=== PATIENT | male | born 1940 | race American Indian/Alaskan Native ===

== ENCOUNTER 2017-04-27 07:23 | Inpatient (IN) | payer MEDICARE, BC ==
[2017-04-27 07:35] VITALS: BMI 25.1
[2017-04-27 07:52] LABS: BASO # 0.1 K/uL (0.0-0.2); BASO % 0.9 % (0.0-2.0); EOS # 0.5 K/uL (0.0-0.7); EOS % 7.4 % (0.0-4.0); HEMATOCRIT 25.8 % (35.0-51.0); LYMPH # 0.9 K/uL (1.0-4.3); LYMPH % 13.2 % (20.0-40.0); MEAN CELL VOLUME 91.5 fL (80.0-94.0); MEAN CORPUSCULAR HEMOGLOBIN 29.4 pg (27.0-31.0); MEAN CORPUSCULAR HGB CONC 32.1 g/dL (33.0-37.0); MEAN PLATELET VOLUME 10.6 fL (7.2-11.7); MONO # 0.9 K/uL (0.0-0.8); MONO % 12.9 % (0.0-10.0); RED CELL DISTRIBUTION WIDTH 16.6 % (11.5-14.5); WHITE BLOOD COUNT 6.9 K/uL (4.8-10.8)
--- NOTE | 2017-04-27 07:57 | C.PDOC ---
History Of Present Illness 77 yr old male brought in via EMS from hemodialysis, presents to the ER for evaluation of new onset of altered mental status for an unknown duration. Family states they were called this morning and was informed patient has been referred to the ER. Reports of new onset of lethargy and weakness, last seen at baseline by family 1 week ago. Family states normally patient is talkative, interacting and able to feed himself. ROS unable to be obtained. 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 FAMILY STATES WAS CALLED THIS MORNING FROM HD THAT PT WAS REFERRED TO ER. NEW ONSET LETHARGY WEAKNESS. LAST SEEN @ BASELINE BY FAMILY 1 WEEK AGO. NORMALLY TALKATIVE, INTERACTIVE CAN FEED SELF. CHRONIC NONWT BEARING. ROS UTO EXAM MOD DIST MILD TOX HEENT PERRLA MM DRY LUNGS POOR EFFORT NO AUDIBLE RALES NO TACHYPNEA, RETRACTIONS CV RRR ABD NEG SKIN HEALING ?ZOSTER RASH L INNER THIGH W MULT LARGE BLISTERS,NONHEMORRHAGIC. NO CELLULITIS NEURO SEE NIH REMAINDER NEG Time Seen by Provider: 04/27/17 07:36 Chief Complaint (Nursing): Altered Mental Status History Per: EMS, Family History/Exam Limitations: Clinical Condition Onset/Duration Of Symptoms: Days Past Medical History Vital Signs: Last Vital Signs Temp 97.8 F 04/27/17 08:03 Pulse 46 L 04/27/17 10:29 Resp 12 04/27/17 10:29 BP 100/43 L 04/27/17 10:29 Pulse Ox 100 04/27/17 10:29 - Medical History PMH: Anemia, Arthritis, Dementia, Diabetes, HTN, Peripheral Edema (ble +1 tight skin), [facility]OSED ENDOSCOPIC BIOPSY OF LARGE INTESTINE (08/14/06) DIALYSIS ARTERIOVENOSTOM (09/10/13) DX ULTRASOUND-DIGESTIVE (05/09/06) ESOPHAGOGASTRODUODENOSCOPY [EGD] W/CLOSED BIOPSY (05/09/06) GAIT TRAINING/AMBULAT TREATMENT USING ASSIST EQUIPMENT (09/21/16) HEMODIALYSIS (10/01/13) HOME MANAGEMENT TREATMENT USING ASSIST EQUIPMENT (09/21/16) INJECT/INFUSE NEC (02/21/15) OCCUPATIONAL THERAPY (10/01/13) PACKED CELL TRANSFUSION (09/27/13) PERCUTAN NEEDLE BIOPSY OF KIDNEY (07/30/12) PERFORMANCE OF URINARY FILTRATION, MULTIPLE (11/28/16) PERFORMANCE OF URINARY FILTRATION, SINGLE (09/18/16) PHYSICAL THERAPY NEC (10/01/13) VENOUS CATHETERIZATION FOR RENAL DIALYSIS (09/27/13) Family History: States: No Known Family Hx - Social History Hx Tobacco Use: No Hx Alcohol Use: No Hx Substance Use: No - Immunization History Hx Tetanus Toxoid Vaccination: No Hx Influenza Vaccination: No Hx Pneumococcal Vaccination: No Review Of Systems Review Of Systems: ROS cannot be obtained secondary to pt's inabilty to answer questions. Physical Exam - Physical Exam Appears: Non-toxic, In Acute Distress (Mild) Skin: Warm, Dry, Other (Healing possibel zoster rash, left inner thigh with multiple large blisters. Non hemorrhagic. No cellulistis. ) Head: Atraumatic, Normacephalic Eye(s): bilateral: PERRL Oral Mucosa: Dry Cardiovascular: Rhythm Regular, No Murmur Respiratory: Other (Poor effort. No audible rales. No tachypnea. No retractions. ) Gastrointestinal/Abdominal: Normal Exam, Soft, No Tenderness, No Guarding, No Rebound Neurological/Psych: Other (See NIH) ED Course And Treatment - Laboratory Results Result Diagrams: 04/27/17 08:04 04/27/17 07:46 Interpretation Of Abnormal: LOWEST H/H IN 2017. ECG: Interpreted By Me, Viewed By Me ECG Rhythm: Sinus Bradycardia Rate From EC (BPM) - Radiology CXR: Interpreted by Me, Viewed By Me CXR Interpretation: Yes: Other (MILD CHF) - CT Scan/US CT - Head Other Rad Studies (CT/US): Read By Radiologist CT/US Interpretation: D/W CIPRIANO SCALES: NEG NIHSS Stroke Scale - Date/Time Evaluation Performed Date Performed: 04/27/17 Time Performed: 07:45 When Was NIHSS Performed: Baseline - How Severe is the Stoke Level of Consciousness: 1=Drowsy LOC to Questions: 2=Neither correct LOC to commands: 2=Neither correct Best Gaze: 0=Normal Visual: 0=No visual loss Facial: 2=Partial (lower face paralysis) Motor Arm - Left: 3=No effort against gravity (falls immediately) Motor Arm - Right: 3=No effort against gravity (falls immediately) Motor Leg - Left: 3=No effort against gravity (falls immediately) Motor Leg - Right: 3=No effort against gravity (falls immediately) Limb Ataxia: 0=Absent Sensory: 0=Normal Best Language: 1=Mild to moderate aphasia Dysarthia: 1=Mild to moderate slurring Extinction & Inattention (Neglect): 0=Normal, no object Score: 21 Severity Of Stroke: 21-42= Severe Stroke Progress - Re-Evaluation Re-evaluation Note: 04/27/17 08:00 D/W DR DIAMOND @ 0734: PT FOUND AMS, HYPOTENSIVE WHILE @ HD. CONCERN FOR SEPSIS. LAST HD 04/25. WILL CONSULT 04/27/17 07:45 CODE STROKE ACTIVATED 04/27/17 08:19 PRIOR +GUIAC 09/2016. RECUR ANEMIA 04/27/17 08:37 APPEARS COMFORTABLE NAD VSS. 04/27/17 09:32 D/W DR DIAMOND AWARE OF ER FINDINGS. STATES PT PMD = DR DOCKERY. pending callback DR THAYER C/F PMD 04/27/17 10:33 D/W DR THAYER WILL ADMIT - Data Reviewed Data Reviewed: Lab, Diagnostic imaging, EKG, Old records - Critical Care Citical Care: Excluding Proc Time Critical Care Time: 90 minutes - Continuity of Care Discussed patient case with:: Family-HIPPA compliant, Covering for PMD Discussed pt. case with art consultant/specialty: Nephrology rTPA Inclusion/Exclusion - Refusal of Treatment Patient Refused Treatment: No - Inclusion Criteria for Altepase Patient is 18 years or Older: Yes Clinical DX Ischemic Stroke Cause Neurological Deficit: Yes Time of Onset Established Less Than 270 Mins Before TX Begin: No Risk/Benefit Discussed With Patient/Family Member Present: No - Exclusion Criteria for Altepase Uncontrolled Hypertension at Time of TX (SBP>185 or DBP>110): No Active Internal Bleeding: No Known Bleeding Diathesis: No Evidence of an Intracranial Hemorrhage: No Evidence Major Acute Infarct w/ Signs Greater Than 1/3 MCA: No Suspicion of Subarachnoid Bleed on PreTX Eval(CT: neg bleed): No - Warning to TPA With Conditions Following Conditions Weighed Against Anticipated Benefit: Yes Condition: Age Greater Than 75 years, Increase Risk of Bleed Due to Comorbid Condition, Care Team Unable to Determine Eligibilty Additional Condition (For 3-4.5 Hour Window): Prior Stroke and Diabetes Medical Decision Making Medical Decision Making: PLAN: * CT - Head * CXR * EKG * Troponin * VBG * CBC * CMP * BNP * Urinalysis NOTE: HO ESRD ON HD, DUE FOR HD TODAY. WILL DEFER SEPSIS IVF BOLUS DUE TO CONCERN FOR CHF. Disposition Counseled Patient/Family Regarding: Studies Performed, Diagnosis - Disposition Disposition: HOSPITALIZED Disposition Time: 10:33 Condition: STABLE Forms: [employer] (Estonian) - POA Present On Arrival: None - Clinical Impression Clinical Impression: ESRD (end stage renal disease), Altered mental state, Anemia - Scribe Statement The provider has reviewed the documentation as recorded by the Gertrudeibe Tiffany Gaxiola Provider Attestation: All medical record entries made by the Gertrudeibeben were at my direction and personally dictated by me. I have reviewed the chart and agree that the record accurately reflects my personal performance of the history, physical exam, medical decision making, and the department course for this patient. I have also personally directed, reviewed, and agree with the discharge instructions and disposition. Decision To Admit - Pt Status Changed To: Hospital Disposition Of: Observation - . Bed Request Type: Regular Admitting Physician: Amanda Thayer Patient Diagnosis: ESRD (end stage renal disease), Altered mental state, Anemia
[2017-04-27 07:59] LABS: VENOUS BLOOD GAS BASE EXCESS 4.2 mmol/L (0.0-2.0); VENOUS BLOOD GAS PCO2 55 mmHg (40-60); VENOUS BLOOD PH 7.36 (7.32-7.43)
[2017-04-27 08:00] LABS: INR 1.1
[2017-04-27 08:08] LABS: POTASSIUM 4.6 mmol/L (3.6-5.2)
[2017-04-27 08:09] LABS: CHOLESTEROL 111 mg/dL (0-199)
--- NOTE | 2017-04-27 08:09 | CT ---
EXAM: CT Head Without Intravenous Contrast CLINICAL HISTORY: 77 years old, male; Signs and symptoms; Weakness, facial; Additional info: Code stroke TECHNIQUE: Axial computed tomography images of the head/brain without intravenous contrast. All CT scans at this facility use one or more dose reduction techniques, viz.: automated exposure control; ma/kV adjustment per patient size (including targeted exams where dose is matched to indication; i.e. head); or iterative reconstruction technique. 116 images are submitted. COMPARISON: No relevant prior studies available. FINDINGS: Brain: Cerebral and cerebellar volume loss. Patchy hypodensity is seen in the periventricular and subcortical white matter. No hemorrhage. Ventricles: Unremarkable. No ventriculomegaly. Bones/joints: There is incomplete development of the neural arch of C1, a normal variant.No acute fracture. Soft tissues: Unremarkable. Vasculature: Vascular calcifications. Sinuses: Left maxillary sinus disease. Mastoid air cells: Unremarkable. No mastoid effusion. Orbits: The globe and lens are intact. IMPRESSION: No evidence of an acute intracranial hemorrhage, midline shift or mass effect is identified.Changes of an acute infarct may not be visible on CT for up to 24 to 48 hours. If this is of clinical concern, a follow up examination and/or MRI may be of benefit.
[2017-04-27 08:10] LABS: ALB/GLOB RATIO 0.7 (1.0-2.1); BILIRUBIN,TOTAL 0.4 mg/dL (0.2-1.3); CALCIUM 10.2 mg/dl (8.6-10.4); TOTAL PROTEIN 7.5 g/dL (6.3-8.3)
[2017-04-27 08:21] LABS: TROPONIN I 0.022 ng/mL (0.00-0.120)
[2017-04-27 08:21] LABS: MAGNESIUM 2.5 mg/dL (1.6-2.3); PHOSPHOROUS 4.6 mg/dL (2.5-4.5)
--- NOTE | 2017-04-27 09:04 | RAD ---
HISTORY: Sepsis Patient COMPARISON: Chest x-ray performed 04/27/17 TECHNIQUE: Chest, one view. FINDINGS: LUNGS: Mild interstitial prominence may reflect infection or edema. Probable small left pleural effusion. Mild left apical pleural thickening. No definite pneumothorax. Please note that chest x-ray has limited sensitivity for the detection of pulmonary masses. CARDIOVASCULAR: Cardiomegaly. Atherosclerotic calcification of the aortic knob. OSSEOUS STRUCTURES: Degenerative changes. VISUALIZED UPPER ABDOMEN: Unremarkable. OTHER FINDINGS: None. IMPRESSION: Mild interstitial prominence may reflect infection or edema. Probable small left pleural effusion. Mild left apical pleural thickening. Cardiomegaly. Atherosclerotic calcification of the aortic knob. Cardiomegaly.
[2017-04-27 09:22] LABS: RBC URINE 1 /hpf (0-3); URINE BACTERIA RARE (<OCC); URINE BILIRUBIN NEGATIVE (NEGATIVE); URINE BLOOD NEGATIVE (NEGATIVE); URINE COLOR Yellow (YELLOW); URINE GLUCOSE (UA) NORMAL (Normal); URINE KETONE NEGATIVE (NEGATIVE); URINE LEUKOCYTE ESTERASE TRACE Leu/uL (Negative); URINE PROTEIN 2+ mg/dL (NEGATIVE); URINE UROBILINOGEN NORMAL mg/dL (0.2-1.0); WBC URINE 16 /hpf (0-5)
[2017-04-27 12:07] LABS: VENOUS BLOOD GAS BASE EXCESS 2.1 mmol/L (0.0-2.0); VENOUS BLOOD GAS PCO2 52 mmHg (40-60); VENOUS BLOOD PH 7.35 (7.32-7.43)
--- NOTE | 2017-04-27 12:23 | CP.PCM.HP ---
History of Present Illness - History of Present Illness History of Present Illness: pt transfered from dialysis for ams Present on Admission - Present on Admission Any Indicators Present on Admission: No Review of Systems - Review of Systems Systems not reviewed;Unavailable: Acuity of Condition - Constitutional Constitutional: Fatigue - EENT Eyes: As Per HPI Ears: As Per HPI Nose/Mouth/Throat: As Per HPI - Cardiovascular Cardiovascular: As Per HPI - Respiratory Respiratory: As Per HPI - Gastrointestinal Gastrointestinal: As Per HPI - Genitourinary Genitourinary: As Per HPI - Reproductive: Male Reproductive:Male: As Per HPI - Musculoskeletal Musculoskeletal: As Per HPI - Integumentary Integumentary: As Per HPI, Lesions Additional comments: ulcers and bulous leasion thigh - Neurological Neurological: Confusion, Memory Loss Additional comments: ams - Psychiatric Psychiatric: Memory Loss - Endocrine Endocrine: As Per HPI - Hematologic/Lymphatic Hematologic: As Per HPI Past Patient History - Infectious Disease Hx of Infectious Diseases: None - Tetanus Immunizations Tetanus Immunization: Unknown - Past Medical History & Family History Past Medical History?: Yes - Past Social History Smoking Status: Never Smoked - CARDIAC Hx Hypertension: Yes Hx Peripheral Edema: Yes (ble +1 tight skin) - PULMONARY Hx Asthma: No Hx Bronchitis: No Hx Chronic Obstructive Pulmonary Disease (COPD): No Hx Emphysema: No Hx Pneumonia: No Hx Sleep Apnea: No - NEUROLOGICAL Hx Dementia: Yes - HEENT Hx HEENT Problems: No (WEARS RX GLASSES) - RENAL Hx Chronic Kidney Disease: Yes - ENDOCRINE/METABOLIC Hx Hyperthyroidism: No Hx Hypothyroidism: No - HEMATOLOGICAL/ONCOLOGICAL Hx Anemia: Yes - INTEGUMENTARY Hx Dermatological Problems: Yes (Bullous pemphigoid) - MUSCULOSKELETAL/RHEUMATOLOGICAL Hx Arthritis: Yes - GASTROINTESTINAL Hx Crohn's Disease: No Hx Diverticulitis: No Hx Gall Bladder Disease: No Hx Pancreatitis: No - GENITOURINARY/GYNECOLOGICAL Hx Sexually Transmitted Disorders: No - PSYCHIATRIC Hx Substance Use: No - SURGICAL HISTORY Hx Appendectomy: No Hx Cholecystectomy: No Hx Coronary Stent: No - ANESTHESIA Hx Anesthesia: No Hx Anesthesia Reactions: No Hx Malignant Hyperthermia: No Meds Allergies/Adverse Reactions: Allergies Allergy/AdvReac Type Severity Reaction Status Date / Time No Known Allergies Allergy Verified 04/27/17 09:36 Physical Exam - Constitutional Appears: Non-toxic, No Acute Distress - Head Exam Head Exam: ATRAUMATIC - Eye Exam Eye Exam: Normal appearance Pupil Exam: NORMAL ACCOMODATION - ENT Exam ENT Exam: Mucous Membranes Moist - Neck Exam Neck exam: Positive for: Full Rom - Respiratory Exam Respiratory Exam: NORMAL BREATHING PATTERN - Cardiovascular Exam Cardiovascular Exam: REGULAR RHYTHM - GI/Abdominal Exam GI & Abdominal Exam: Normal Bowel Sounds - Rectal Exam Rectal Exam: Deferred - Extremities Exam Additional comments: lesion thigh left - Back Exam Back exam: NORMAL INSPECTION - Neurological Exam Neurological exam: Altered - Psychiatric Exam Psychiatric exam: Flat Affect - Skin Skin Exam: Rash, Vesicles Results - Vital Signs Recent Vital Signs: Last Vital Signs Temp 97.6 F 04/27/17 10:58 Pulse 46 L 04/27/17 10:29 Resp 12 04/27/17 10:29 BP 100/43 L 04/27/17 10:29 Pulse Ox 100 04/27/17 10:29 - Labs Result Diagrams: 04/27/17 08:04 04/27/17 07:46 Labs: Laboratory Results - last 24 hr 04/27/17 04/27/17 04/27/17 07:27 07:46 07:46 WBC 6.9 RBC 2.82 L Hgb 8.3 L D Hct 25.8 L MCV 91.5 MCH 29.4 MCHC 32.1 L RDW 16.6 H Plt Count 95 L MPV 10.6 Neut % (Auto) 65.6 Lymph % (Auto) 13.2 L Davie % (Auto) 12.9 H Eos % (Auto) 7.4 H Baso % (Auto) 0.9 Neut # 4.5 Lymph # 0.9 L Davie # 0.9 H Eos # 0.5 Baso # 0.1 PT 12.4 H INR 1.1 APTT 32 pO2 VBG pH VBG pCO2 VBG HCO3 VBG Total CO2 VBG O2 Sat (Calc) VBG Base Excess VBG Potassium Glucose Lactate Sodium Potassium Chloride Carbon Dioxide Anion Gap BUN Creatinine Est GFR ( Amer) Est GFR (Non-Af Amer) POC Glucose (mg/dL) 93 Random Glucose Calcium Phosphorus Magnesium Total Bilirubin AST ALT Alkaline Phosphatase Troponin I NT-Pro-B Natriuret Pep Total Protein Albumin Globulin Albumin/Globulin Ratio Triglycerides Cholesterol LDL Cholesterol Direct HDL Cholesterol Venous Blood Potassium Urine Color Urine Clarity Urine pH Ur Specific [place] Urine Protein Urine Glucose (UA) Urine Ketones Urine Blood Urine Nitrate Urine Bilirubin Urine Urobilinogen Ur Leukocyte Esterase Urine WBC (Auto) Urine RBC (Auto) Ur Squamous Epith Cells Urine Bacteria Blood Type Antibody Screen 04/27/17 04/27/17 04/27/17 07:46 07:53 07:54 WBC RBC Hgb Hct MCV MCH MCHC RDW Plt Count MPV Neut % (Auto) Lymph % (Auto) Davie % (Auto) Eos % (Auto) Baso % (Auto) Neut # Lymph # Davie # Eos # Baso # PT INR APTT pO2 23 L VBG pH 7.36 VBG pCO2 55 VBG HCO3 26.6 VBG Total CO2 32.8 H VBG O2 Sat (Calc) 41.2 VBG Base Excess 4.2 H VBG Potassium 4.6 Glucose 82 Lactate 0.7 Sodium 137 140.0 Potassium 4.6 Chloride 100 108.0 H Carbon Dioxide 28 Anion Gap 13 BUN 59 H Creatinine 5.9 H Est GFR ( Amer) 11 Est GFR (Non-Af Amer) 9 POC Glucose (mg/dL) Random Glucose 76 Calcium 10.2 Phosphorus Magnesium Total Bilirubin 0.4 AST 28 ALT 36 Alkaline Phosphatase 70 Troponin I 0.0220 NT-Pro-B Natriuret Pep Total Protein 7.5 Albumin 3.1 L Globulin 4.4 H Albumin/Globulin Ratio 0.7 L Triglycerides Cholesterol LDL Cholesterol Direct HDL Cholesterol Venous Blood Potassium 4.6 Urine Color Urine Clarity Urine pH Ur Specific [place] Urine Protein Urine Glucose (UA) Urine Ketones Urine Blood Urine Nitrate Urine Bilirubin Urine Urobilinogen Ur Leukocyte Esterase Urine WBC (Auto) Urine RBC (Auto) Ur Squamous Epith Cells Urine Bacteria Blood Type O POSITIVE Antibody Screen Negative 04/27/17 04/27/17 04/27/17 07:58 08:04 08:09 WBC RBC Hgb 8.3 L Hct MCV MCH MCHC RDW Plt Count MPV Neut % (Auto) Lymph % (Auto) Davie % (Auto) Eos % (Auto) Baso % (Auto) Neut # Lymph # Davie # Eos # Baso # PT INR APTT pO2 VBG pH VBG pCO2 VBG HCO3 VBG Total CO2 VBG O2 Sat (Calc) VBG Base Excess VBG Potassium Glucose Lactate Sodium Potassium Chloride Carbon Dioxide Anion Gap BUN Creatinine Est GFR ( Amer) Est GFR (Non-Af Amer) POC Glucose (mg/dL) Random Glucose Calcium Phosphorus 4.6 H Magnesium 2.5 H Total Bilirubin AST ALT Alkaline Phosphatase Troponin I NT-Pro-B Natriuret Pep 3700 H Total Protein Albumin Globulin Albumin/Globulin Ratio Triglycerides 52 Cholesterol 111 LDL Cholesterol Direct 55 HDL Cholesterol 38 Venous Blood Potassium Urine Color Urine Clarity Urine pH Ur Specific [place] Urine Protein Urine Glucose (UA) Urine Ketones Urine Blood Urine Nitrate Urine Bilirubin Urine Urobilinogen Ur Leukocyte Esterase Urine WBC (Auto) Urine RBC (Auto) Ur Squamous Epith Cells Urine Bacteria Blood Type Antibody Screen 04/27/17 04/27/17 08:50 12:00 WBC RBC Hgb Hct MCV MCH MCHC RDW Plt Count MPV Neut % (Auto) Lymph % (Auto) Davie % (Auto) Eos % (Auto) Baso % (Auto) Neut # Lymph # Davie # Eos # Baso # PT INR APTT pO2 35 VBG pH 7.35 VBG pCO2 52 VBG HCO3 25.7 VBG Total CO2 30.3 H VBG O2 Sat (Calc) 67.1 H VBG Base Excess 2.1 H VBG Potassium 4.4 Glucose 69 L Lactate 0.8 Sodium 141.0 Potassium Chloride 110.0 H Carbon Dioxide Anion Gap BUN Creatinine Est GFR ( Amer) Est GFR (Non-Af Amer) POC Glucose (mg/dL) Random Glucose Calcium Phosphorus Magnesium Total Bilirubin AST ALT Alkaline Phosphatase Troponin I NT-Pro-B Natriuret Pep Total Protein Albumin Globulin Albumin/Globulin Ratio Triglycerides Cholesterol LDL Cholesterol Direct HDL Cholesterol Venous Blood Potassium 4.4 Urine Color Yellow Urine Clarity Clear Urine pH 8.0 Ur Specific [place] 1.012 Urine Protein 2+ H Urine Glucose (UA) Normal Urine Ketones Negative Urine Blood Negative Urine Nitrate Negative Urine Bilirubin Negative Urine Urobilinogen Normal Ur Leukocyte Esterase Trace Urine WBC (Auto) 16 H Urine RBC (Auto) 1 Ur Squamous Epith Cells 1 Urine Bacteria Rare Blood Type Antibody Screen Assessment & Plan - Assessment and Plan (Free Text) Assessment: whitney AMS ESRF ON DIALYSIS ANEAMIA SKIN LEASION R/O HERPER Plan: PER ORDERS - Date & Time Date: 04/27/17 Time: 12:28
--- NOTE | 2017-04-27 12:47 | CP.PCM.PN ---
Subjective - Date & Time of Evaluation Date of Evaluation: 04/27/17 Time of Evaluation: 12:45 - Subjective Subjective: PT SEEN BY DR. PRINCE NOW AT BEDSIDE. PRIMARY RN PAYTON NOTICED LEFT THIGH WITH BLISTERS AND AREAS OF DRIED OLD SCABS AND BLISTERS. LIKELY HERPES ZOSTER. PT IS POOR HISTORIAN AND HAS NO RECOLLECTION OF HOW/WHEN IT STARTED. UNSURE IF HE HAS PAIN OR ITCHINESS TO AFFECTED SITE. DR. SHAH CONSULTED BY DR. PRINCE--GAUGE MAKER APPRENTICE MADE HIM AWARE AND HE WILL SEE PT TODAY DURING HIS ROUNDS. PT TO BE ON CONTACT ISOLATION FOR NOW. NO FURTHER ORDERS. Objective - Vital Signs/Intake and Output Vital Signs (last 24 hours): Temp Pulse Resp BP Pulse Ox 97.3 F L 56 L 18 172/68 H 100 04/27/17 12:13 04/27/17 12:13 04/27/17 12:13 04/27/17 12:13 04/27/17 12:13 - Labs Labs: 04/27/17 08:04 04/27/17 07:46 PT 12.4 SECONDS (9.7-12.2) H 04/27/17 07:46 INR 1.1 04/27/17 07:46 APTT 32 SECONDS (21-34) 04/27/17 07:46
[2017-04-27] MEDS ORDERED: WATER IV SCH (17:00)
[2017-04-27] MEDS ORDERED: ACYCLOVIR IV SCH (17:00)
[2017-04-27] MEDS ORDERED: DEXTROSE 5% IV SCH (17:00)
--- NOTE | 2017-04-27 17:03 | CON ---
DATE: NEPHROLOGY CONSULTATION HISTORY OF PRESENT ILLNESS: A 77-year-old male with past medical history of hypertension, diabetes, hepatitis B (untreated), dementia, and ESRD on hemodialysis (CDS at [facility] under [facility]) sent to ED from Dialysis Unit this morning after present there with lethargy, elevated temperature, and mild hypotension. Nephrology being consulted for ESRD care. Per Dialysis Unit, the patient who came from correction has temperature of 99.7 at the correction. On presentation to Dialysis Unit, the patient was not responding to verbal stimuli and appeared very lethargic; blood pressure was 90s/50s and the patient again had a slightly elevated temperature; therefore, the patient was sent to ED. Further history unable to be obtained from the patient who is demented at baseline. In ED, the patient had blood cultures and urine cultures obtained; IV fluids were not given due to concern for CHF and with blood pressure somewhat improved. The patient was noted to be bradycardic with heart rate in 40s to 50s. Further history obtained from correction reveals that patient was given a prn dose of 0.1 mg clonidine just before 5 am this morning; PAST MEDICAL HISTORY: As mentioned above. FAMILY HISTORY: Unable to be obtained. SOCIAL HISTORY: Unable to be obtained. REVIEW OF SYSTEMS: Unable to be obtained. PHYSICAL EXAMINATION: GENERAL: No distress, able to answer questions, albeit very slowly. VITAL SIGNS: This afternoon blood pressure 183/76, heart rate 85, respirations 20, temperature 97.4, and O2 saturation 98% on room air. HEENT: Moist mucous membranes. Nonicteric. RESPIRATORY: Lungs clear to auscultation bilaterally. No rales. No rhonchi. No wheezes. CARDIOVASCULAR: S1 and S2 normal. No murmurs. No gallops. No rubs. The patient is able to lie flat comfortably. GASTROINTESTINAL: Abdomen is soft, nontender, and nondistended. EXTREMITIES: 2+ bilateral lower leg edema. SKIN: Left thigh with multiple blisters, some draining, nontender. PSYCHIATRIC: Not agitated. NEUROLOGIC: Alert and oriented x2. LABORATORY DATA: This morning, CBC; WBC 6.9, hemoglobin 8.3, hematocrit 25.8, and platelets 95. Chemistry panel; sodium 137, potassium 4.6, chloride 100, bicarbonate 28, BUN 59, creatinine 5.9, glucose 76, calcium 10.2, phosphorous 4.6, magnesium 2.5, and albumin 3.1. Chest x-ray directly visualized with increased haziness bilaterally. No definite pulmonary vascular congestion observed. ASSESSMENT AND PLAN: 1. End-stage renal disease on hemodialysis, relatively stable volume and electrolyte status. The patient's last treatment 2 days ago her routine, dialyzing today per routine over 3 hours on 2 potassium, 2.5 calcium, 34 bicarbonate, dialysate with ultrafiltration goal of net 2 L. 2. Herpes zoster lesions. Lesions over left thigh are consistent with herpes zoster lesions. The patient is being started on Valtrex 500 mg p.o. q.12 hours, awaiting Infectious Disease recommendation, needs to be re-dosed post hemodialysis if switching to once daily IV dosing. 3. Altered mental status. No indication of sepsis with blood pressure much improved without getting any IV fluids; was likely caused by clonidine induced hypotension which was inappropriately given shortly before HD session that was to take place; 4. 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 The patient is getting high dose of long-acting EPO with dialysis. Hemoglobin has overall been trending downward this year, but not significantly changed from labs done as an outpatient last month; We will continue to monitor and transfuse if hemoglobin goes below 7. 5. Chronic kidney disease-mineral bone disorder. The patient with elevated PTH was recently started on Sensipar 30 mg every other day, should continue the same. Continue sevelamer 1 tablet with meals for prevention of hyperphosphatemia. 6. Hypertensive chronic kidney disease. The patient is on amlodipine 10 mg and valsartan 320 mg daily, as well as hydralazine 50 mg bid. Patient no longer hypotensive; is getting ultrafiltration on hemodialysis today. We will monitor blood pressure and restart medications as appropriate. Thank you for this consult. We will be following closely. Josse Hebert MD MTDD
[2017-04-27] MEDS: WATER IV SCH (20:08)
[2017-04-27] MEDS: ACYCLOVIR IV SCH (20:08)
[2017-04-27] MEDS: DEXTROSE 5% IV SCH (20:08)
[2017-04-28 07:24] LABS: HEMATOCRIT 26.5 % (35.0-51.0); MEAN CELL VOLUME 90.7 fL (80.0-94.0); MEAN CORPUSCULAR HEMOGLOBIN 29.2 pg (27.0-31.0); MEAN CORPUSCULAR HGB CONC 32.2 g/dL (33.0-37.0); RED CELL DISTRIBUTION WIDTH 16.1 % (11.5-14.5); WHITE BLOOD COUNT 6.5 K/uL (4.8-10.8)
[2017-04-28 07:42] LABS: POTASSIUM 3.7 mmol/L (3.6-5.2)
[2017-04-28 07:45] LABS: CALCIUM 10.1 mg/dl (8.6-10.4)
[2017-04-28] MEDS ORDERED: Dextrose 50% SYRINGE Inj (50 ml) ONE (08:27)
[2017-04-28] MEDS ORDERED: Dextrose 50% SYRINGE Inj (50 ml) IV ONE (08:30)
[2017-04-28] MEDS ORDERED: Dextrose 5%/0.45% NS 1,000 ML IV SCH (11:45)
--- NOTE | 2017-04-28 13:10 | CP.PCM.PN ---
Subjective - Date & Time of Evaluation Date of Evaluation: 04/28/17 Time of Evaluation: 13:07 - Subjective Subjective: 77 yo M, intermediate resident, w/ pmh of htn, dm, renal cell Ca, dementia, and ESRD on HD, admitted with lethargy/AMS; Patient NPO after failing swallow eval? Able to swallow pills; Otherwise not agitated per nursing staff; blood sugar dropped this morning; Objective - Vital Signs/Intake and Output Vital Signs (last 24 hours): Temp Pulse Resp BP Pulse Ox 97.9 F 62 20 175/70 H 95 04/28/17 04:18 04/28/17 07:51 04/28/17 07:51 04/28/17 07:51 04/28/17 07:51 - Medications Medications: Current Medications Amlodipine Besylate (Norvasc) 10 mg PO DAILY PRN PRN Reason: Elevated BP Cinacalcet (Sensipar) 30 mg PO Q48H [facility] Clonidine HCl (Catapres-Tts3 0.3 Mg/24 Hr) 1 patch TD Q7D@1000 [facility] Heparin Sodium (Porcine) (Heparin) 5,000 units SC Q12 [facility] Last Admin: 04/28/17 12:01 Dose: 5,000 units Hydralazine HCl (Apresoline) 50 mg PO BID [facility] Last Admin: 04/28/17 09:50 Dose: 50 mg Acyclovir 400 mg/ Dextrose 100 mls @ 100 mls/hr IV Q24H [facility] Last Admin: 04/27/17 20:08 Dose: 100 mls/hr Dextrose (Dextrose 10% In Water) 1,000 mls @ 20 mls/hr IV .Q24H [facility] Losartan Potassium (Cozaar) 100 mg PO DAILY [facility] Last Admin: 04/28/17 09:50 Dose: 100 mg Sevelamer Carbonate (Renvela) 800 mg PO TIDCC [facility] Last Admin: 04/28/17 12:06 Dose: 800 mg - Labs Labs: 04/28/17 07:11 04/28/17 07:11 PT 12.4 SECONDS (9.7-12.2) H 04/27/17 07:46 INR 1.1 04/27/17 07:46 APTT 32 SECONDS (21-34) 04/27/17 07:46 - Constitutional Appears: Non-toxic, No Acute Distress - Head Exam Head Exam: NORMAL INSPECTION - Eye Exam Eye Exam: Normal appearance. absent: Scleral icterus - ENT Exam ENT Exam: Mucous Membranes Moist - Respiratory Exam Respiratory Exam: Clear to Ausculation Bilateral. absent: Rales, Rhonchi, Wheezes, Respiratory Distress - Cardiovascular Exam Cardiovascular Exam: RRR, +S1, +S2 - GI/Abdominal Exam GI & Abdominal Exam: Soft. absent: Distended, Tenderness - Extremities Exam Additional comments: mild b/l lower leg edema; - Neurological Exam Neurological Exam: Alert, Awake - Psychiatric Exam Psychiatric exam: absent: Agitated - Skin Skin Exam: Warm. absent: Cyanosis Assessment and Plan (1) ESRD (end stage renal disease) Assessment & Plan: Stable electrolyte and volume status; last HD yesterday, next due for Saturday; avoid IVF; Status: Acute (2) Hypertensive CKD, ESRD on dialysis Assessment & Plan: Blood pressure elevated today but just restarted on his meds (hydralazine 50 mg bid, amlodipine 10 mg and losartan 100 mg - in place of valsartan); will monitor before adjusting meds further; recommend not to start clonidine patch as his prn clonidine dose early yesterday morning at [place] caused hypotension and bradycardia; -If BP remains elevated, can increase hydralazine dose and frequency; Status: Acute (3) Anemia in ESRD (end-stage renal disease) Assessment & Plan: Hgb relatively stable although well below goal for ESRD; will continue with long acting EPO formulation as outpatient; Status: Acute (4) Herpes zoster Assessment & Plan: Started on acyclovir 100 mg q24h, dosed for HD; will avoid giving IVF (usually given to avoid nephrotoxicity) in this patient who has minimal residual renal function and is at risk for volume overload; Status: Acute (5) Altered mental state Assessment & Plan: Acute on chronic; had hypotension and bradycardia (likely due to clonidine) at time AMS was noted; currently mental status close to baseline in this patient who has dementia; I have been following patient regularly since past 6+ months and his functional status has overall declined after becoming bedbound due to L foot weakness; -avoid drastic drops in BP Status: Acute (6) Chronic kidney disease-mineral and bone disorder Assessment & Plan: With elevated PTH as outpatient; continue sensipar q48h; continue sevelamer 1 tab w/ meals; Status: Acute (7) Hypoglycemia Assessment & Plan: Will switch IVF to D10 at 20 cc/hr to avoid volume overload; Status: Acute
--- NOTE | 2017-04-28 13:52 | CP.PCM.CON ---
History of Present Illness - History of Present Illness History of Present Illness: 77 yr old male brought in via EMS from hemodialysis, presents to the ER for evaluation of new onset of altered mental status for an unknown duration. Family states they were called this morning and was informed patient has been referred to the ER. Reports of new onset of lethargy and weakness, last seen at baseline by family 1 week ago. Family states normally patient is talkative, interacting and able to feed himself. ROS unable to be obtained. pt has been treated for Zoster with valtrex in NH - unclear how long awake alert lethargic and confused Hx not reliable but denies fever or chills - Medical History PMH: Anemia, Arthritis, Dementia, Diabetes, HTN, Peripheral Edema (ble +1 tight skin), Chronic Kidney Disease - [facility] Procedures CLOSED ENDOSCOPIC BIOPSY OF LARGE INTESTINE (08/14/06) DIALYSIS ARTERIOVENOSTOM (09/10/13) DX ULTRASOUND-DIGESTIVE (05/09/06) ESOPHAGOGASTRODUODENOSCOPY [EGD] W/CLOSED BIOPSY (05/09/06) GAIT TRAINING/AMBULAT TREATMENT USING ASSIST EQUIPMENT (09/21/16) HEMODIALYSIS (10/01/13) HOME MANAGEMENT TREATMENT USING ASSIST EQUIPMENT (09/21/16) INJECT/INFUSE NEC (02/21/15) OCCUPATIONAL THERAPY (10/01/13) PACKED CELL TRANSFUSION (09/27/13) PERCUTAN NEEDLE BIOPSY OF KIDNEY (07/30/12) PERFORMANCE OF URINARY FILTRATION, MULTIPLE (11/28/16) PERFORMANCE OF URINARY FILTRATION, SINGLE (09/18/16) PHYSICAL THERAPY NEC (10/01/13) VENOUS CATHETERIZATION FOR RENAL DIALYSIS (09/27/13) Review of Systems - Review of Systems Systems not reviewed;Unavailable: Altered Mental Status - Constitutional Constitutional: As Per HPI - EENT Eyes: absent: As Per HPI, Blind Spots, Blurred Vision, Change in Vision, Decreased Night Vision, Diplopia, Discharge, Dry Eye, Exophthalmos, Floaters, Irritation, Itchy Eyes, Loss of Peripheral Vision, Pain, Photophobia, Requires Corrective Lenses, Sees Flashes, Spots in Vision, Tunnel Vision, Other Visual Disturbances, Loss of Vision, Other Ears: absent: As Per HPI, Decreased Hearing, Ear Discharge, Ear Pain, Tinnitus, Abnormal Hearing, Disequilibrium, Dizziness, Other Nose/Mouth/Throat: absent: As Per HPI, Epistaxis, Nasal Congestion, Nasal Discharge, Nasal Obstruction, Nasal Trauma, Nose Pain, Post Nasal Drip, Sinus Pain, Sinus Pressure, Bleeding Gums, Change in Voice, Dental Pain, Dry Mouth, Dysphagia, Halitosis, Hoarsness, Lip Swelling, Mouth Lesions, Mouth Pain, Odynophagia, Sore Throat, Throat Swelling, Tongue Swelling, Facial Pain, Neck Pain, Neck Mass, Other - Cardiovascular Cardiovascular: As Per HPI - Respiratory Respiratory: absent: As Per HPI, Cough, Dyspnea, Hemoptysis, Dyspnea on Exertion , Wheezing, Snoring, Stridor, Pain on Inspiration, Chest Congestion, Excessive Mucous Production, Change in Mucous Color, Pain with Coughing, Other - Gastrointestinal Gastrointestinal: absent: As Per HPI, Abdominal Pain, Belching, Bloating, Change in Bowel Habits, Change in Stool Character, Coffee Ground Emesis, Constipation, Cramping, Diarrhea, Dyspepsia, Dysphagia, Early Satiety, Excessive Flatus, Fecal Incontinence, Heartburn, Hematemesis, Hematochezia, Loose Stools, Melena, Nausea, Odynophagia, Temesmus, Vomiting, Other - Genitourinary Genitourinary: absent: As Per HPI, Change in Urinary Stream, Difficulty Urinating, Dysuria, Flank Pain, Hematuria, Pyuria, Nocturia, Urinary Incontinence, Urinary Frequency, Urinary Hesitance, Urinary Urgency, Voiding Freq/Small Amts, Freq UTI, Hx Renal/Bladder Calculi, Hx /Renal Surgery, Bladder Distension, Other - Musculoskeletal Musculoskeletal: As Per HPI - Integumentary Integumentary: Rash, Skin Pain, Wounds - Neurological Neurological: As Per HPI - Psychiatric Psychiatric: absent: As Per HPI, Abnormal Sleep Pattern, Anhedonia, Anxiety, Auditory Hallucinations, Behavioral Changes, Change in Appetite, Change in Libido, Confusion, Depression, Difficulty Concentrating, Hallucinations, Homicidal Ideation, Hopelessness, Irritability, Memory Loss, Mood Swings, Panic Attacks, Paranoia, Suicidal Ideation, Visual Hallucinations, Tactile Hallucinations, Other - Endocrine Endocrine: absent: As Per HPI, Change in Body Appearance, Change in Libido, Cold Intolorance, Deepening of Voice, Excessive Sweating, Fatigue, Flushing, Heat Intolorance, Increase in Ring/Shoe/Hat Size, Palpitations, Polydipsia, Polyphagia, Polyuria, Other - Hematologic/Lymphatic Hematologic: absent: As Per HPI, Easy Bleeding, Easy Bruising, Lymphadenopathy, Other Past Patient History - Infectious Disease Hx of Infectious Diseases: None - Tetanus Immunizations Tetanus Immunization: Unknown - Past Medical History & Family History Past Medical History?: Yes - Past Social History Smoking Status: Never Smoked - CARDIAC Hx Hypertension: Yes - PULMONARY Hx Chronic Obstructive Pulmonary Disease (COPD): No - NEUROLOGICAL Hx Dementia: Yes - HEENT Hx HEENT Problems: No (WEARS RX GLASSES) - RENAL Hx Renal Failure: Yes (CKD, ESRD w/ HD) - ENDOCRINE/METABOLIC Hx Diabetes Mellitus Type 2: Yes Hx Hypothyroidism: No - HEMATOLOGICAL/ONCOLOGICAL Hx Anemia: Yes - INTEGUMENTARY Hx Dermatological Problems: Yes (Bullous pemphigoid) - MUSCULOSKELETAL/RHEUMATOLOGICAL Hx Arthritis: Yes - GASTROINTESTINAL Hx Crohn's Disease: No Hx Diverticulitis: No Hx Gall Bladder Disease: No Hx Pancreatitis: No - GENITOURINARY/GYNECOLOGICAL Hx Sexually Transmitted Disorders: No - PSYCHIATRIC Hx Substance Use: No - SURGICAL HISTORY Hx Appendectomy: No Hx Cholecystectomy: No Hx Coronary Stent: No - ANESTHESIA Hx Anesthesia: No Hx Anesthesia Reactions: No Hx Malignant Hyperthermia: No Meds Allergies/Adverse Reactions: Allergies Allergy/AdvReac Type Severity Reaction Status Date / Time No Known Allergies Allergy Verified 04/27/17 09:36 - Medications Medications: Current Medications Amlodipine Besylate (Norvasc) 10 mg PO DAILY PRN PRN Reason: Elevated BP Cinacalcet (Sensipar) 30 mg PO Q48H [facility] Clonidine HCl (Catapres-Tts3 0.3 Mg/24 Hr) 1 patch TD Q7D@1000 [facility] Last Admin: 04/28/17 13:28 Dose: Not Given Heparin Sodium (Porcine) (Heparin) 5,000 units SC Q12 [facility] Last Admin: 04/28/17 12:01 Dose: 5,000 units Hydralazine HCl (Apresoline) 50 mg PO BID [facility] Last Admin: 04/28/17 09:50 Dose: 50 mg Acyclovir 400 mg/ Dextrose 100 mls @ 100 mls/hr IV Q24H [facility] Last Admin: 04/27/17 20:08 Dose: 100 mls/hr Dextrose (Dextrose 10% In Water) 1,000 mls @ 20 mls/hr IV .Q24H [facility] Losartan Potassium (Cozaar) 100 mg PO DAILY [facility] Last Admin: 04/28/17 09:50 Dose: 100 mg Sevelamer Carbonate (Renvela) 800 mg PO TIDCC [facility] Last Admin: 04/28/17 12:06 Dose: 800 mg Physical Exam - Constitutional Appears: Non-toxic, Confused, Cachectic, Chronically Ill - Head Exam Head Exam: ATRAUMATIC, NORMAL INSPECTION, NORMOCEPHALIC - Eye Exam Eye Exam: PERRL. absent: Scleral icterus Pupil Exam: NORMAL ACCOMODATION - ENT Exam ENT Exam: Mucous Membranes Dry, Normal External Ear Exam, Normal Oropharynx - Neck Exam Neck exam: Negative for: Lymphadenopathy - Respiratory Exam Respiratory Exam: Decreased Breath Sounds, Prolonged Expiratory Phase, Rhonchi - Cardiovascular Exam Cardiovascular Exam: REGULAR RHYTHM, +S1, +S2 - GI/Abdominal Exam GI & Abdominal Exam: Diminished Bowel Sounds, Soft. absent: Rigid, Tenderness - Rectal Exam Rectal Exam: Deferred - Exam Exam: NORMAL INSPECTION - Extremities Exam Extremities exam: Negative for: pedal edema - Back Exam Back exam: absent: CVA tenderness (L), CVA tenderness (R), paraspinal tenderness - Neurological Exam Neurological exam: Alert, Altered, CN II-XII Intact - Psychiatric Exam Psychiatric exam: Depressed - Skin Skin Exam: Dry, Intact Additional comments: left heel ulcer foot drop decreased pulses Results - Vital Signs Recent Vital Signs: Last Vital Signs Temp 97.9 F 04/28/17 04:18 Pulse 62 04/28/17 07:51 Resp 20 04/28/17 07:51 BP 175/70 H 04/28/17 07:51 Pulse Ox 95 04/28/17 07:51 - Labs Result Diagrams: 04/28/17 07:11 04/28/17 07:11 Labs: Laboratory Results - last 24 hr 04/28/17 04/28/17 04/28/17 07:11 07:11 08:22 WBC 6.5 RBC 2.92 L Hgb 8.5 L Hct 26.5 L MCV 90.7 MCH 29.2 MCHC 32.2 L RDW 16.1 H Plt Count 84 L MPV 9.0 Sodium 136 Potassium 3.7 Chloride 98 Carbon Dioxide 27 Anion Gap 14 BUN 33 H Creatinine 4.3 H Est GFR ( Amer) 16 Est GFR (Non-Af Amer) 13 POC Glucose (mg/dL) 53 L Random Glucose 57 L Calcium 10.1 04/28/17 04/28/17 08:56 11:26 WBC RBC Hgb Hct MCV MCH MCHC RDW Plt Count MPV Sodium Potassium Chloride Carbon Dioxide Anion Gap BUN Creatinine Est GFR ( Amer) Est GFR (Non-Af Amer) POC Glucose (mg/dL) 155 H 115 H Random Glucose Calcium Assessment & Plan (1) Altered mental state Status: Acute (2) Anemia in ESRD (end-stage renal disease) Status: Acute (3) ESRD (end stage renal disease) Status: Acute (4) Herpes zoster Status: Acute (5) Hypertensive CKD, ESRD on dialysis Status: Acute (6) Chronic kidney disease-mineral and bone disorder Status: Acute (7) HTN (hypertension) Status: Acute (8) Rash Status: Acute (9) Weakness Status: Acute (10) Diabetes mellitus Status: Chronic (11) ESRD (end stage renal disease) on dialysis Status: Chronic (12) Hepatitis B Status: Chronic - Assessment and Plan (Free Text) Assessment: etiology of encephalopathy unclear will obtain ammonia level could be toxic metabolic await cultures cont acyclovir for VZV left leg
[2017-04-28] MEDS: WATER IV SCH (18:22)
[2017-04-28] MEDS: ACYCLOVIR IV SCH (18:22)
[2017-04-28] MEDS: DEXTROSE 5% IV SCH (18:22)
--- NOTE | 2017-04-28 19:23 | CP.PCM.CON ---
History of Present Illness - History of Present Illness History of Present Illness: Transferred from Hemodialysis for AMS 77 yr old male brought in via EMS from hemodialysis, presents to the ER for evaluation of new onset of altered mental status for an unknown duration. Family states they were called this morning and was informed patient has been referred to the ER. Reports of new onset of lethargy and weakness, last seen at baseline by family 1 week ago. Family states normally patient is talkative, interacting and able to feed himself. ROS unable to be obtained. pt has been treated for Zoster with valtrex in NH - unclear how long awake alert lethargic and confused Hx not reliable but denies fever or chills Medical History PMH: Anemia, Arthritis, Dementia, Diabetes, HTN, Peripheral Edema (ble +1 tight skin), Chronic Kidney Disease prison resident, w/ pmh of htn, dm, renal cell Ca, dementia, and ESRD on HD, admitted with lethargy/AMS; Family History: States: unknown Family Hx IMPRESSION of CXR: Mild interstitial prominence may reflect infection or edema. Probable small left pleural effusion. Mild left apical pleural thickening. Cardiomegaly. Atherosclerotic calcification of the aortic knob. IMPRESSION of CT Brain: No evidence of an acute intracranial hemorrhage, midline shift or mass effect is identified.Changes of an acute infarct may not be visible on CT for up to 24 to 48 hours. If this is of clinical concern, a follow up examination and/or MRI may be of benefit. CLOSED ENDOSCOPIC BIOPSY OF LARGE INTESTINE (08/14/06) DIALYSIS ARTERIOVENOSTOM (09/10/13) DX ULTRASOUND-DIGESTIVE (05/09/06) ESOPHAGOGASTRODUODENOSCOPY [EGD] W/CLOSED BIOPSY (05/09/06) GAIT TRAINING/AMBULAT TREATMENT USING ASSIST EQUIPMENT (09/21/16) HEMODIALYSIS (10/01/13) HOME MANAGEMENT TREATMENT USING ASSIST EQUIPMENT (09/21/16) INJECT/INFUSE NEC (02/21/15) OCCUPATIONAL THERAPY (10/01/13) PACKED CELL TRANSFUSION (09/27/13) PERCUTAN NEEDLE BIOPSY OF KIDNEY (07/30/12) PERFORMANCE OF URINARY FILTRATION, MULTIPLE (11/28/16) PERFORMANCE OF URINARY FILTRATION, SINGLE (09/18/16) PHYSICAL THERAPY NEC (10/01/13) VENOUS CATHETERIZATION FOR RENAL DIALYSIS (09/27/13) - Review of Systems Systems not reviewed;Unavailable: Altered Mental Status - Constitutional Constitutional: As Per HPI - EENT Eyes: absent: As Per HPI, Blind Spots, Blurred Vision, Change in Vision, Decreased Night Vision, Diplopia, Discharge, Dry Eye, Exophthalmos, Floaters, Irritation, Itchy Eyes, Loss of Peripheral Vision, Pain, Photophobia, Requires Corrective Lenses, Sees Flashes, Spots in Vision, Tunnel Vision, Other Visual Disturbances, Loss of Vision, Other Ears: absent: As Per HPI, Decreased Hearing, Ear Discharge, Ear Pain, Tinnitus, Abnormal Hearing, Disequilibrium, Dizziness, Other Nose/Mouth/Throat: absent: As Per HPI, Epistaxis, Nasal Congestion, Nasal Discharge, Nasal Obstruction, Nasal Trauma, Nose Pain, Post Nasal Drip, Sinus Pain, Sinus Pressure, Bleeding Gums, Change in Voice, Dental Pain, Dry Mouth, Dysphagia, Halitosis, Hoarsness, Lip Swelling, Mouth Lesions, Mouth Pain, Odynophagia, Sore Throat, Throat Swelling, Tongue Swelling, Facial Pain, Neck Pain, Neck Mass, Other - Cardiovascular Cardiovascular: As Per HPI - Respiratory Respiratory: absent: As Per HPI, Cough, Dyspnea, Hemoptysis, Dyspnea on Exertion , Wheezing, Snoring, Stridor, Pain on Inspiration, Chest Congestion, Excessive Mucous Production, Change in Mucous Color, Pain with Coughing, Other - Gastrointestinal Gastrointestinal: absent: As Per HPI, Abdominal Pain, Belching, Bloating, Change in Bowel Habits, Change in Stool Character, Coffee Ground Emesis, Constipation, Cramping, Diarrhea, Dyspepsia, Dysphagia, Early Satiety, Excessive Flatus, Fecal Incontinence, Heartburn, Hematemesis, Hematochezia, Loose Stools, Melena, Nausea, Odynophagia, Temesmus, Vomiting, Other - Genitourinary Genitourinary: absent: As Per HPI, Change in Urinary Stream, Difficulty Urinating, Dysuria, Flank Pain, Hematuria, Pyuria, Nocturia, Urinary Incontinence, Urinary Frequency, Urinary Hesitance, Urinary Urgency, Voiding Freq/Small Amts, Freq UTI, Hx Renal/Bladder Calculi, Hx /Renal Surgery, Bladder Distension, Other - Musculoskeletal Musculoskeletal: As Per HPI - Integumentary Integumentary: Rash, Skin Pain, Wounds - Neurological Neurological: As Per HPI - Psychiatric Psychiatric: absent: As Per HPI, Abnormal Sleep Pattern, Anhedonia, Anxiety, Auditory Hallucinations, Behavioral Changes, Change in Appetite, Change in Libido, Confusion, Depression, Difficulty Concentrating, Hallucinations, Homicidal Ideation, Hopelessness, Irritability, Memory Loss, Mood Swings, Panic Attacks, Paranoia, Suicidal Ideation, Visual Hallucinations, Tactile Hallucinations, Other - Endocrine Endocrine: absent: As Per HPI, Change in Body Appearance, Change in Libido, Cold Intolorance, Deepening of Voice, Excessive Sweating, Fatigue, Flushing, Heat Intolorance, Increase in Ring/Shoe/Hat Size, Palpitations, Polydipsia, Polyphagia, Polyuria, Other - Hematologic/Lymphatic Hematologic: absent: As Per HPI, Easy Bleeding, Easy Bruising, Lymphadenopathy, Other Past Social History Smoking Status: Never Smoked - CARDIAC Hx Hypertension: Yes - PULMONARY Hx Chronic Obstructive Pulmonary Disease (COPD): No - NEUROLOGICAL Hx Dementia: Yes - HEENT Hx HEENT Problems: No (WEARS RX GLASSES) - RENAL Hx Renal Failure: Yes (CKD, ESRD w/ HD) - ENDOCRINE/METABOLIC Hx Diabetes Mellitus Type 2: Yes Hx Hypothyroidism: No - HEMATOLOGICAL/ONCOLOGICAL Hx Anemia: Yes - INTEGUMENTARY Hx Dermatological Problems: Yes (Bullous pemphigoid) - MUSCULOSKELETAL/RHEUMATOLOGICAL Hx Arthritis: Yes - GASTROINTESTINAL Hx Crohn's Disease: No Hx Diverticulitis: No Hx Gall Bladder Disease: No Hx Pancreatitis: No - GENITOURINARY/GYNECOLOGICAL Hx Sexually Transmitted Disorders: No - PSYCHIATRIC Hx Substance Use: No - SURGICAL HISTORY Hx Appendectomy: No Hx Cholecystectomy: No Hx Coronary Stent: No - ANESTHESIA Hx Anesthesia: No Hx Anesthesia Reactions: No Hx Malignant Hyperthermia: No Meds Allergies/Adverse Reactions: Allergies Allergy/AdvReac Type Severity Reaction Status Date / Time No Known Allergies Allergy Verified 04/27/17 09:36 Last Vital Signs Temp 97.9 F 04/28/17 04:18 Pulse 62 04/28/17 07:51 Resp 20 04/28/17 07:51 BP 175/70 H 04/28/17 07:51 Pulse Ox 95 04/28/17 07:51 (1) ESRD (end stage renal disease) Assessment & Plan: Stable electrolyte and volume status; last HD yesterday, next due for Saturday; avoid IVF; Status: Acute (2) Hypertensive CKD, ESRD on dialysis Assessment & Plan: Blood pressure elevated today but just restarted on his meds (hydralazine 50 mg bid, amlodipine 10 mg and losartan 100 mg - in place of valsartan); will monitor before adjusting meds further; recommend not to start clonidine patch as his prn clonidine dose early yesterday morning at [facility] caused hypotension and bradycardia; -If BP remains elevated, can increase hydralazine dose and frequency; Status: Acute (3) Anemia in ESRD (end-stage renal disease) Assessment & Plan: Hgb relatively stable although well below goal for ESRD; will continue with long acting EPO formulation as outpatient; Status: Acute (4) Herpes zoster Assessment & Plan: Started on acyclovir 100 mg q24h, dosed for HD; will avoid giving IVF (usually given to avoid nephrotoxicity) in this patient who has minimal residual renal function and is at risk for volume overload; Status: Acute (5) Altered mental state Assessment & Plan: Acute on chronic; had hypotension and bradycardia (likely due to clonidine) at time AMS was noted; currently mental status close to baseline in this patient who has dementia; I have been following patient regularly since past 6+ months and his functional status has overall declined after becoming bedbound due to L foot weakness; -avoid drastic drops in BP Status: Acute (6) Chronic kidney disease-mineral and bone disorder Assessment & Plan: With elevated PTH as outpatient; continue sensipar q48h; continue sevelamer 1 tab w/ meals; Status: Acute (7) Hypoglycemia Assessment & Plan: Will switch IVF to D10 at 20 cc/hr to avoid volume overload; Status: Acute Past Patient History - Infectious Disease Hx of Infectious Diseases: None - Tetanus Immunizations Tetanus Immunization: Unknown - Past Medical History & Family History Past Medical History?: Yes - Past Social History Smoking Status: Never Smoked - CARDIAC Hx Hypertension: Yes - PULMONARY Hx Chronic Obstructive Pulmonary Disease (COPD): No - NEUROLOGICAL Hx Dementia: Yes - HEENT Hx HEENT Problems: No (WEARS RX GLASSES) - RENAL Hx Renal Failure: Yes (CKD, ESRD w/ HD) - ENDOCRINE/METABOLIC Hx Diabetes Mellitus Type 2: Yes Hx Hypothyroidism: No - HEMATOLOGICAL/ONCOLOGICAL Hx Anemia: Yes - INTEGUMENTARY Hx Dermatological Problems: Yes (Bullous pemphigoid) - MUSCULOSKELETAL/RHEUMATOLOGICAL Hx Arthritis: Yes - GASTROINTESTINAL Hx Crohn's Disease: No Hx Diverticulitis: No Hx Gall Bladder Disease: No Hx Pancreatitis: No - GENITOURINARY/GYNECOLOGICAL Hx Sexually Transmitted Disorders: No - PSYCHIATRIC Hx Substance Use: No - SURGICAL HISTORY Hx Appendectomy: No Hx Cholecystectomy: No Hx Coronary Stent: No - ANESTHESIA Hx Anesthesia: No Hx Anesthesia Reactions: No Hx Malignant Hyperthermia: No Meds Allergies/Adverse Reactions: Allergies Allergy/AdvReac Type Severity Reaction Status Date / Time No Known Allergies Allergy Verified 04/27/17 09:36 - Medications Medications: Current Medications Amlodipine Besylate (Norvasc) 10 mg PO DAILY PRN PRN Reason: Elevated BP Cinacalcet (Sensipar) 30 mg PO Q48H [facility] Last Admin: 04/28/17 14:12 Dose: 30 mg Clonidine HCl (Catapres-Tts3 0.3 Mg/24 Hr) 1 patch TD Q7D@1000 [facility] Last Admin: 04/28/17 13:28 Dose: Not Given Heparin Sodium (Porcine) (Heparin) 5,000 units SC Q12 [facility] Last Admin: 04/28/17 12:01 Dose: 5,000 units Hydralazine HCl (Apresoline) 50 mg PO BID [facility] Last Admin: 04/28/17 18:22 Dose: 50 mg Acyclovir 400 mg/ Dextrose 100 mls @ 100 mls/hr IV Q24H [facility] Last Admin: 04/28/17 18:22 Dose: 100 mls/hr Dextrose (Dextrose 10% In Water) 1,000 mls @ 20 mls/hr IV .Q24H [facility] Last Admin: 04/28/17 14:00 Dose: 20 mls/hr Losartan Potassium (Cozaar) 100 mg PO DAILY [facility] Last Admin: 04/28/17 09:50 Dose: 100 mg Sevelamer Carbonate (Renvela) 800 mg PO TIDCC [facility] Last Admin: 04/28/17 18:00 Dose: Not Given Physical Exam - Neurological Exam Additional comments: Mental Status: He is Oriented to place and persons with difficulty He doesn't know who is the President He knows his name, knows we are in a hospital doesn't tell what state He doesn't know the year, the time, reported to be combative Patient is lying down with posistrains in his Upper extremities He is sleepy takes much of effort to be awakened, responds to any conversation with effort. His speech is non fluent non coherent. He is demented Cranial Nerves II to XII: no facial asymmetry Pupils are equal 3mm each, with sluggish reaction to light. Extra ocular muscles look intact. his tongue is central Motor; Tone is rigid, power shows generalized weakness 3 to 4/5 DTR are 0/4, toes are down going with plantar stimulation Sensory: Pain is intact Cerebellar: unable to assess. Results - Vital Signs Recent Vital Signs: Last Vital Signs Temp 98.5 F 04/28/17 17:06 Pulse 68 04/28/17 17:06 Resp 20 04/28/17 17:06 BP 168/68 H 04/28/17 17:06 Pulse Ox 100 04/28/17 17:06 - Labs Result Diagrams: 04/28/17 07:11 04/28/17 07:11 Labs: Laboratory Results - last 24 hr 04/28/17 04/28/17 04/28/17 07:11 07:11 08:22 WBC 6.5 RBC 2.92 L Hgb 8.5 L Hct 26.5 L MCV 90.7 MCH 29.2 MCHC 32.2 L RDW 16.1 H Plt Count 84 L MPV 9.0 Sodium 136 Potassium 3.7 Chloride 98 Carbon Dioxide 27 Anion Gap 14 BUN 33 H Creatinine 4.3 H Est GFR ( Amer) 16 Est GFR (Non-Af Amer) 13 POC Glucose (mg/dL) 53 L Random Glucose 57 L Calcium 10.1 04/28/17 04/28/17 04/28/17 08:56 11:26 16:20 WBC RBC Hgb Hct MCV MCH MCHC RDW Plt Count MPV Sodium Potassium Chloride Carbon Dioxide Anion Gap BUN Creatinine Est GFR ( Amer) Est GFR (Non-Af Amer) POC Glucose (mg/dL) 155 H 115 H 100 Random Glucose Calcium Assessment & Plan (1) CVA (cerebral vascular accident) Assessment and Plan: Negative CT Brain, MRI Brain is confirmable, if warranted Status: Acute (2) Altered mental state Status: Acute (3) Anemia Status: Acute (4) Anemia in ESRD (end-stage renal disease) Status: Acute (5) ESRD (end stage renal disease) Status: Acute (6) Herpes zoster Assessment and Plan: lesion In the left heel, under care of KARINA Barriga. 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
[2017-04-29 08:18] LABS: HEMATOCRIT 26.3 % (35.0-51.0); MEAN CORPUSCULAR HEMOGLOBIN 29.7 pg (27.0-31.0); MEAN CORPUSCULAR HGB CONC 32.7 g/dL (33.0-37.0); WHITE BLOOD COUNT 6.5 K/uL (4.8-10.8)
[2017-04-29 08:48] LABS: POTASSIUM 3.9 mmol/L (3.6-5.2)
[2017-04-29 08:51] LABS: CALCIUM 9.2 mg/dl (8.6-10.4)
[2017-04-29 09:31] LABS: THYROID STIMULATING HORMONE 3.3 mIU/L (0.46-4.68)
--- NOTE | 2017-04-29 11:13 | CP.PCM.PN ---
Subjective - Date & Time of Evaluation Date of Evaluation: 04/29/17 Time of Evaluation: 09:00 - Subjective Subjective: afebrile nad rx in progress seen by dr lala discussed on rounds overall poor prognosis Objective - Vital Signs/Intake and Output Vital Signs (last 24 hours): Temp Pulse Resp BP Pulse Ox 97.9 F 61 20 144/55 L 97 04/29/17 08:34 04/29/17 08:34 04/29/17 08:34 04/29/17 08:34 04/29/17 08:34 - Medications Medications: Current Medications Amlodipine Besylate (Norvasc) 10 mg PO DAILY PRN PRN Reason: Elevated BP Cinacalcet (Sensipar) 30 mg PO Q48H [facility] Last Admin: 04/28/17 14:12 Dose: 30 mg Clonidine HCl (Catapres-Tts3 0.3 Mg/24 Hr) 1 patch TD Q7D@1000 [facility] Last Admin: 04/28/17 13:28 Dose: Not Given Heparin Sodium (Porcine) (Heparin) 5,000 units SC Q12 [facility] Last Admin: 04/29/17 09:33 Dose: 5,000 units Hydralazine HCl (Apresoline) 50 mg PO BID [facility] Last Admin: 04/29/17 09:33 Dose: 50 mg Acyclovir 400 mg/ Dextrose 100 mls @ 100 mls/hr IV Q24H [facility] Last Admin: 04/28/17 18:22 Dose: 100 mls/hr Dextrose (Dextrose 10% In Water) 1,000 mls @ 20 mls/hr IV .Q24H [facility] Last Admin: 04/28/17 14:00 Dose: 20 mls/hr Losartan Potassium (Cozaar) 100 mg PO DAILY [facility] Last Admin: 04/29/17 09:33 Dose: 100 mg Sevelamer Carbonate (Renvela) 800 mg PO TIDCC [facility] Last Admin: 04/29/17 08:40 Dose: 800 mg - Labs Labs: 04/29/17 08:03 04/29/17 08:03 PT 12.4 SECONDS (9.7-12.2) H 04/27/17 07:46 INR 1.1 04/27/17 07:46 APTT 32 SECONDS (21-34) 04/27/17 07:46 - Constitutional Appears: Confused, Cachectic, Chronically Ill - Head Exam Head Exam: NORMOCEPHALIC - Eye Exam Eye Exam: PERRL - ENT Exam ENT Exam: Mucous Membranes Dry - Neck Exam Neck Exam: absent: Lymphadenopathy - Respiratory Exam Respiratory Exam: Decreased Breath Sounds - Cardiovascular Exam Cardiovascular Exam: REGULAR RHYTHM - GI/Abdominal Exam GI & Abdominal Exam: Distended, Soft - Rectal Exam Rectal Exam: Deferred - Exam Exam: NORMAL INSPECTION - Extremities Exam Extremities Exam: Pedal Edema - Back Exam Back Exam: absent: CVA tenderness (L), CVA tenderness (R) - Neurological Exam Neurological Exam: Altered Assessment and Plan (1) Altered mental state Status: Acute (2) Anemia in ESRD (end-stage renal disease) Status: Acute (3) ESRD (end stage renal disease) Status: Acute (4) Herpes zoster Status: Acute (5) Hypertensive CKD, ESRD on dialysis Status: Acute (6) Chronic kidney disease-mineral and bone disorder Status: Acute (7) HTN (hypertension) Status: Acute (8) Rash Status: Acute (9) Weakness Status: Acute (10) Diabetes mellitus Status: Chronic (11) ESRD (end stage renal disease) on dialysis Status: Chronic (12) Hepatitis B Status: Chronic
[2017-04-29 11:22] LABS: ANA TITER 1:40
--- NOTE | 2017-04-29 12:54 | MRI ---
PROCEDURE: MRI BRAIN WITHOUT CONTRAST HISTORY: R/O CVA, R/O Intracranial structural lesion COMPARISON: Noncontrast head CT from 04/27/2017 TECHNIQUE: Multiplanar, multisequence MR images of the brain were obtained without intravenous contrast enhancement. FINDINGS: HEMORRHAGE: None DWI: No evidence of an acute or early subacute infarction. BRAIN PARENCHYMA: There are severe chronic microangiopathic changes. There is no mass, mass effect or abnormal extra-axial fluid collection. There is no territorial infarction. The midline sagittal structures are normal. VENTRICLES: There is mild age-related global parenchymal volume loss and proportionate enlargement of the ventricles and cortical sulci. CRANIUM: There is normal bone marrow signal pattern. ORBITS: Grossly unremarkable. PARANASAL SINUSES/MASTOIDS: Predominantly clear. VASCULAR SYSTEM: There are normal signal voids in the larger intracranial arteries. OTHER FINDINGS: None. IMPRESSION: No acute intracranial abnormality. Severe chronic microangiopathic changes and mild age-related global parenchymal volume loss.
--- NOTE | 2017-04-29 13:32 | VASCLAB ---
PROCEDURE: HISTORY: CVA COMPARISON: None available. TECHNIQUE: Grayscale and duplex Doppler evaluation of the cervical carotid and vertebral arteries were performed. The common carotid, carotid bifurcations and cervical Internal Carotid Artery (ICA) and proximal External Carotid Artery (ECA) were evaluated. The vertebral arteries were evaluated for gross patency and flow direction. Report prepared by Luis A Kerns, BS, RVT FINDINGS: RIGHT CAROTID ARTERIES: 1. Common Carotid Artery: No significant focal plaque formation of the right common carotid artery. Maximum Peak Systolic velocity: 121 cm/sec: End-diastolic velocity 9 cm/sec. 2. Carotid Bifurcation: Calcific plaque formation. Maximum Peak Systolic velocity: 148 cm/sec: End-diastolic velocity 7 cm/sec. 3. Internal Carotid Artery: Plaque description: Moderate calcific 3.1. Proximal Segment: Peak systolic velocity 85 cm/sec: End-diastolic velocity 9 cm/sec - % stenosis 0-15% 3.2. Middle Segment: Peak systolic velocity 101 cm/sec: End-diastolic velocity 12 cm/sec - % stenosis 0-15% 3.3. Distal Segment: Peak systolic velocity 85 cm/sec: End-diastolic velocity 13 cm/sec - % stenosis 0-15% 4. External Carotid Artery: No significant focal plaque formation. Peak systolic velocity 130 cm/sec 5. ICA/CCA Ratio: 1.8 LEFT CAROTID ARTERIES: 1. Common Carotid Artery: No significant focal plaque formation of the left common carotid artery. Maximum Peak Systolic velocity: 131 cm/sec: End-diastolic velocity 7 cm/sec. 2. Carotid Bifurcation: Calcific plaque formation. Maximum Peak Systolic velocity: 101 cm/sec: End-diastolic velocity 5 cm/sec. 3. Internal Carotid Artery: Plaque description: Mild calcific 3.1. Proximal Segment: Peak systolic velocity 87 cm/sec: End-diastolic velocity 12 cm/sec - % stenosis 0-15% 3.2. Middle Segment: Peak systolic velocity 105 cm/sec: End-diastolic velocity 14 cm/sec - % stenosis 0-15% 3.3. Distal Segment: Peak systolic velocity 129 cm/sec: End-diastolic velocity 18 cm/sec - % stenosis 0-15% 4. External Carotid Artery: No significant focal plaque formation. Peak systolic velocity 140 cm/sec 5. ICA/CCA Ratio: 1.4 VERTEBRAL ARTERIES: 1. Right Vertebral Artery: The right vertebral artery flow direction is antegrade. 2. Left Vertebral Artery: The left vertebral artery flow direction is antegrade. OTHER FINDINGS: IMPRESSION: RIGHT: Duplex scan does not suggest hemodynamically significant stenosis of the right extracranial carotid arteries. LEFT: Duplex scan does not suggest hemodynamically significant stenosis of the left extracranial carotid arteries.
[2017-04-29 16:04] LABS: RAPID PLASMA REAGIN NONREACTIVE (NONREACTIVE)
[2017-04-29] MEDS: DEXTROSE 5% IV SCH (17:20)
[2017-04-29] MEDS: ACYCLOVIR IV SCH (17:20)
[2017-04-29] MEDS: WATER IV SCH (17:20)
--- NOTE | 2017-04-30 02:26 | CP.PCM.PN ---
Subjective - Date & Time of Evaluation Date of Evaluation: 04/29/17 Time of Evaluation: 20:00 - Subjective Subjective: MRI Brain: shows severe microangiopathic changes, no acute findings. Carotid Doppler: Non significant Platelets are 104 (it was 89) Non significant TEETEE, 1:40 Non Reactive RPR High CRP above 15, high ESR 87 Low Hb A1C 4.2 Normal Lipid Profile No change in his clinical condition, Rigidity, combativeness poor prognosis, hepatitis B Objective - Vital Signs/Intake and Output Vital Signs (last 24 hours): Temp Pulse Resp BP Pulse Ox 99.7 F H 82 20 179/70 H 100 04/29/17 23:40 04/29/17 23:40 04/29/17 23:40 04/29/17 23:40 04/29/17 23:40 Intake and Output: 04/29/17 04/30/17 18:59 06:59 Intake Total 360 400 Balance 360 400 - Medications Medications: Current Medications Amlodipine Besylate (Norvasc) 10 mg PO DAILY [facility] Last Admin: 04/29/17 12:15 Dose: 10 mg Cinacalcet (Sensipar) 30 mg PO Q48H [facility] Last Admin: 04/28/17 14:12 Dose: 30 mg Clonidine HCl (Catapres-Tts3 0.3 Mg/24 Hr) 1 patch TD Q7D@1000 [facility] Last Admin: 04/28/17 13:28 Dose: Not Given Donepezil HCl (Aricept) 10 mg PO HS [facility] Last Admin: 04/29/17 22:02 Dose: 10 mg Heparin Sodium (Porcine) (Heparin) 5,000 units SC Q12 [facility] Last Admin: 04/29/17 22:02 Dose: 5,000 units Hydralazine HCl (Apresoline) 75 mg PO TID [facility] Last Admin: 04/29/17 17:28 Dose: Not Given Acyclovir 400 mg/ Dextrose 100 mls @ 100 mls/hr IV Q24H [facility] Last Admin: 04/29/17 17:20 Dose: 100 mls/hr Losartan Potassium (Cozaar) 100 mg PO DAILY [facility] Last Admin: 04/29/17 09:33 Dose: 100 mg Risperidone (Risperdal Tab) 0.5 mg PO HS [facility] Last Admin: 04/29/17 22:02 Dose: 0.5 mg Sevelamer Carbonate (Renvela) 800 mg PO TIDCC [facility] Last Admin: 04/29/17 17:29 Dose: Not Given - Labs Labs: 04/29/17 08:03 04/29/17 08:03 PT 12.4 SECONDS (9.7-12.2) H 04/27/17 07:46 INR 1.1 04/27/17 07:46 APTT 32 SECONDS (21-34) 04/27/17 07:46 Assessment and Plan (1) CVA (cerebral vascular accident) Status: Acute (2) Altered mental state Status: Acute (3) Anemia Status: Acute (4) Anemia in ESRD (end-stage renal disease) Status: Acute (5) ESRD (end stage renal disease) Status: Acute (6) Herpes zoster Status: Acute (7) Hypertensive CKD, ESRD on dialysis Status: Acute (8) Blurred vision Status: Acute (9) Chronic kidney disease-mineral and bone disorder Status: Acute (10) Seizures Status: Acute
--- NOTE | 2017-04-30 06:28 | CP.PCM.PN ---
Subjective - Date & Time of Evaluation Date of Evaluation: 04/29/17 Time of Evaluation: 13:00 - Subjective Subjective: 77 yo M w/ pmh of htn, dm, dementia, bedbound secondary to L foot drop, and ESRD on HD, admitted with lethargy and transient hypotension; Patient tolerating diet; sometimes refusing to open mouth for meds but is able to swallow them; Objective - Vital Signs/Intake and Output Vital Signs (last 24 hours): Temp Pulse Resp BP Pulse Ox 99.7 F H 92 H 20 179/70 H 100 04/29/17 23:40 04/29/17 23:40 04/29/17 23:40 04/29/17 23:40 04/29/17 23:40 Intake and Output: 04/29/17 04/30/17 18:59 06:59 Intake Total 360 400 Balance 360 400 - Medications Medications: Current Medications Amlodipine Besylate (Norvasc) 10 mg PO DAILY [facility] Last Admin: 04/29/17 12:15 Dose: 10 mg Cinacalcet (Sensipar) 30 mg PO Q48H [facility] Last Admin: 04/28/17 14:12 Dose: 30 mg Clonidine HCl (Catapres-Tts3 0.3 Mg/24 Hr) 1 patch TD Q7D@1000 [facility] Last Admin: 04/28/17 13:28 Dose: Not Given Donepezil HCl (Aricept) 10 mg PO HS [facility] Last Admin: 04/29/17 22:02 Dose: 10 mg Heparin Sodium (Porcine) (Heparin) 5,000 units SC Q12 [facility] Last Admin: 04/29/17 22:02 Dose: 5,000 units Hydralazine HCl (Apresoline) 75 mg PO Q8H [facility] Acyclovir 400 mg/ Dextrose 100 mls @ 100 mls/hr IV Q24H [facility] Last Admin: 04/29/17 17:20 Dose: 100 mls/hr Losartan Potassium (Cozaar) 100 mg PO DAILY [facility] Last Admin: 04/29/17 09:33 Dose: 100 mg Risperidone (Risperdal Tab) 0.5 mg PO HS [facility] Last Admin: 04/29/17 22:02 Dose: 0.5 mg Sevelamer Carbonate (Renvela) 800 mg PO TIDCC [facility] Last Admin: 04/29/17 17:29 Dose: Not Given - Labs Labs: 04/29/17 08:03 04/29/17 08:03 PT 12.4 SECONDS (9.7-12.2) H 04/27/17 07:46 INR 1.1 04/27/17 07:46 APTT 32 SECONDS (21-34) 04/27/17 07:46 - Constitutional Appears: Non-toxic, No Acute Distress - Head Exam Head Exam: NORMAL INSPECTION - Eye Exam Eye Exam: Normal appearance. absent: Scleral icterus - ENT Exam ENT Exam: Mucous Membranes Moist - Respiratory Exam Respiratory Exam: Clear to Ausculation Bilateral. absent: Rales, Rhonchi, Wheezes - Cardiovascular Exam Cardiovascular Exam: RRR, +S1, +S2 - GI/Abdominal Exam GI & Abdominal Exam: Soft. absent: Distended, Tenderness - Extremities Exam Additional comments: mild b/l lower leg edema - Neurological Exam Neurological Exam: Alert, Awake - Psychiatric Exam Psychiatric exam: absent: Agitated - Skin Skin Exam: Warm. absent: Cyanosis Assessment and Plan (1) ESRD (end stage renal disease) Assessment & Plan: Stable electrolyte status, no overt volume overload but difficulty assessing dry weight due to inability to get standing weights; will challenge with UF on HD as this is the mainstay of treatment of htn for ESRD patients; Status: Acute (2) Hypertensive CKD, ESRD on dialysis Assessment & Plan: BP uncontrolled; hydralazine increased to 75 mg tid; recommend to avoid clonidine to prevent hypotension/bradycardia (which led to initial presentation) ; challenging with UF on HD as above; Status: Acute (3) Anemia in ESRD (end-stage renal disease) Assessment & Plan: Hgb below goal; on high dose of long acting EPO formulation as outpatient, will continue same; Status: Acute (4) Herpes zoster Assessment & Plan: On IV acyclovir, should re-dose after HD; Status: Acute (5) Altered mental state Assessment & Plan: Overall worsening dementia; from our end we will avoid drastic drops in BP; Status: Acute (6) Chronic kidney disease-mineral and bone disorder Assessment & Plan: On sensipar 30 mg q48h for high PTH, continue; continue sevelamer 1 tab w/ meals for phos control; Status: Acute (7) Hypoglycemia Status: Acute
[2017-04-30 08:07] LABS: HEMATOCRIT 25.3 % (35.0-51.0); MEAN CELL VOLUME 90.1 fL (80.0-94.0); MEAN CORPUSCULAR HEMOGLOBIN 29.3 pg (27.0-31.0); MEAN CORPUSCULAR HGB CONC 32.6 g/dL (33.0-37.0); MEAN PLATELET VOLUME 9.8 fL (7.2-11.7); RED CELL DISTRIBUTION WIDTH 16.1 % (11.5-14.5); WHITE BLOOD COUNT 10.6 K/uL (4.8-10.8)
[2017-04-30 09:01] LABS: POTASSIUM 4.3 mmol/L (3.6-5.2)
--- NOTE | 2017-04-30 10:20 | CP.PCM.PN ---
<Danny Joshia - Last Filed: 04/30/17 12:57> Subjective - Date & Time of Evaluation Date of Evaluation: 04/30/17 Time of Evaluation: 09:00 - Subjective Subjective: Nephrology Note for Dr. Hebert's Service Patient was seen and examined at bedside. No acute events overnight as per nursing. Patient is tolerating diet well as per CP. He reports he feels well. Patient currently receiving dialysis. Objective - Vital Signs/Intake and Output Vital Signs (last 24 hours): Temp Pulse Resp BP Pulse Ox 98.5 F 90 20 129/65 99 04/30/17 09:35 04/30/17 09:35 04/30/17 09:35 04/30/17 10:05 04/30/17 09:35 Intake and Output: 04/30/17 04/30/17 06:59 18:59 Intake Total 400 Balance 400 - Medications Medications: Current Medications Amlodipine Besylate (Norvasc) 10 mg PO DAILY [facility] Last Admin: 04/29/17 12:15 Dose: 10 mg Cinacalcet (Sensipar) 30 mg PO Q48H [facility] Last Admin: 04/28/17 14:12 Dose: 30 mg Clonidine HCl (Catapres-Tts3 0.3 Mg/24 Hr) 1 patch TD Q7D@1000 [facility] Last Admin: 04/28/17 13:28 Dose: Not Given Donepezil HCl (Aricept) 10 mg PO HS [facility] Last Admin: 04/29/17 22:02 Dose: 10 mg Heparin Sodium (Porcine) (Heparin) 5,000 units SC Q12 [facility] Last Admin: 04/29/17 22:02 Dose: 5,000 units Hydralazine HCl (Apresoline) 75 mg PO Q8H [facility] Last Admin: 04/30/17 07:31 Dose: 75 mg Acyclovir 400 mg/ Dextrose 100 mls @ 100 mls/hr IV Q24H [facility] Last Admin: 04/29/17 17:20 Dose: 100 mls/hr Losartan Potassium (Cozaar) 100 mg PO DAILY [facility] Last Admin: 04/29/17 09:33 Dose: 100 mg Risperidone (Risperdal Tab) 0.5 mg PO HS [facility] Last Admin: 04/29/17 22:02 Dose: 0.5 mg Sevelamer Carbonate (Renvela) 800 mg PO TIDCC [facility] Last Admin: 04/30/17 08:05 Dose: 800 mg - Labs Labs: 04/30/17 08:00 04/30/17 08:00 PT 12.4 SECONDS (9.7-12.2) H 04/27/17 07:46 INR 1.1 04/27/17 07:46 APTT 32 SECONDS (21-34) 04/27/17 07:46 - Additional Findings Additional findings: - Constitutional Appears: Non-toxic, No Acute Distress - Head Exam Head Exam: NORMAL INSPECTION - Eye Exam Eye Exam: Normal appearance. absent: Scleral icterus - ENT Exam ENT Exam: Mucous Membranes Moist - Respiratory Exam Respiratory Exam: Clear to Ausculation Bilateral. absent: Rales, Rhonchi, Wheezes - Cardiovascular Exam Cardiovascular Exam: RRR, +S1, +S2 - GI/Abdominal Exam GI & Abdominal Exam: Soft. absent: Distended, Tenderness - Extremities Exam Additional comments: left AVF graft access mild b/l lower leg edema, left foot dressing c/d/i Left thigh with blisters, some draining - Neurological Exam Neurological Exam: Alert, Awake - Psychiatric Exam Psychiatric exam: absent: Agitated - Skin Skin Exam: Warm. absent: Cyanosis Assessment and Plan - Assessment and Plan (Free Text) Assessment: 77 M with PMHx of HTN, DM, dementia, bedbound secondary to L foot drop, and ESRD on HD (TTS), admitted with lethargy and transient hypotension. Plan: (1) ESRD (end stage renal disease) Assessment & Plan: Stable electrolyte status, no overt volume overload but difficulty assessing dry weight due to inability to get standing weights Will challenge with UF on HD as this is the mainstay of treatment of HTN for ESRD patients (2) Hypertensive CKD, ESRD on dialysis Assessment & Plan: BP uncontrolled Hydralazine increased to 75 mg PO TID, continue with Norvasc 10mg PO daily and Cozaar 100mg PO daily Challenging with UF on HD as above Recommend to avoid clonidine to prevent hypotension/bradycardia (which led to initial presentation) (3) Anemia in ESRD (end-stage renal disease) Assessment & Plan: Hgb below goal - baseline 9-10. On high dose of long acting EPO formulation as outpatient, will continue same (4) Herpes zoster Assessment & Plan: On IV acyclovir, should re-dose after HD (5) Altered mental state Assessment & Plan: Overall worsening dementia; from our end we will avoid drastic drops in BP (6) Chronic kidney disease-mineral and bone disorder Assessment & Plan: On sensipar 30 mg q48h for high PTH, continue; continue sevelamer 1 tab w/ meals for phos control (7) Hypoglycemia DW Dr. Hebert, Madelyn RUGGIERO, PGY-1 <Josse Hebert - Last Filed: 05/01/17 08:25> Objective - Vital Signs/Intake and Output Vital Signs (last 24 hours): Temp Pulse Resp BP Pulse Ox 98.8 F 78 18 163/61 H 98 05/01/17 08:04 05/01/17 08:04 05/01/17 08:04 05/01/17 08:04 05/01/17 08:04 - Medications Medications: Current Medications Amlodipine Besylate (Norvasc) 10 mg PO DAILY [facility] Last Admin: 04/30/17 10:29 Dose: Not Given Cinacalcet (Sensipar) 30 mg PO Q48H [facility] Last Admin: 04/30/17 10:29 Dose: Not Given Clonidine HCl (Catapres-Tts3 0.3 Mg/24 Hr) 1 patch TD Q7D@1000 [facility] Last Admin: 04/28/17 13:28 Dose: Not Given Donepezil HCl (Aricept) 10 mg PO HS [facility] Last Admin: 04/29/17 22:02 Dose: 10 mg Heparin Sodium (Porcine) (Heparin) 5,000 units SC Q12 [facility] Last Admin: 04/30/17 22:03 Dose: 5,000 units Hydralazine HCl (Apresoline) 100 mg PO Q8 [facility] Last Admin: 05/01/17 05:41 Dose: 100 mg Losartan Potassium (Cozaar) 100 mg PO DAILY [facility] Last Admin: 04/30/17 10:29 Dose: Not Given Risperidone (Risperdal Tab) 0.5 mg PO HS [facility] Last Admin: 04/29/17 22:02 Dose: 0.5 mg Sevelamer Carbonate (Renvela) 800 mg PO TIDCC [facility] Last Admin: 04/30/17 18:12 Dose: 800 mg - Labs Labs: 05/01/17 07:10 04/30/17 08:00 PT 12.4 SECONDS (9.7-12.2) H 04/27/17 07:46 INR 1.1 04/27/17 07:46 APTT 32 SECONDS (21-34) 04/27/17 07:46 Assessment and Plan (1) ESRD (end stage renal disease) Status: Acute (2) Hypertensive CKD, ESRD on dialysis Status: Acute (3) Anemia in ESRD (end-stage renal disease) Status: Acute (4) Herpes zoster Status: Acute (5) Altered mental state Status: Acute (6) Chronic kidney disease-mineral and bone disorder Status: Acute (7) Hypoglycemia Status: Acute Attending/Attestation - Attestation I have personally seen and examined this patient.: Yes I have fully participated in the care of the patient.: Yes I have reviewed all pertinent clinical information, including history, physical exam and plan: Yes Notes (Text): Patient seen and examined; I agree with the resident's note as above with the following edits: 77 yo M w/ htn, dm, untreated hep B, renal mass, dementia, and ESRD on HD, admitted with lethargy and AMS; Patient underwent HD today, goal is to try to challenge his dry weight in order to control htn; otherwise electrolyte status stable; Hypertensive CKD, BP remains uncontrolled even after HD but patient didn't get his daily meds due to getting HD this morning; should continue to give all BP meds on day of HD (can be given a couple of hours afterward); increasing hydralazine from 75 to 100 mg q8h; Anemia of CKD, relatively stable although well below goal; on long acting EPO formulation as outpatient and will continue the same; AMS and lethargy in the setting of progressive dementia; no other organic cause found; will avoid drastic drops in BP; CKD Mineral Bone Disorder, on sensipar 30 mg q48h due to high PTH, continue; continue sevelamer 1 tab w/ meals for phos control;
--- NOTE | 2017-04-30 10:43 | CP.PCM.PN ---
Subjective - Date & Time of Evaluation Date of Evaluation: 04/30/17 Time of Evaluation: 10:40 - Subjective Subjective: poor comunication still has vesicular leasion thigh and ulcers Objective - Vital Signs/Intake and Output Vital Signs (last 24 hours): Temp Pulse Resp BP Pulse Ox 98.5 F 90 20 161/70 H 99 04/30/17 09:35 04/30/17 09:35 04/30/17 09:35 04/30/17 10:35 04/30/17 09:35 Intake and Output: 04/30/17 04/30/17 06:59 18:59 Intake Total 400 Balance 400 - Medications Medications: Current Medications Amlodipine Besylate (Norvasc) 10 mg PO DAILY [facility] Last Admin: 04/30/17 10:29 Dose: Not Given Cinacalcet (Sensipar) 30 mg PO Q48H [facility] Last Admin: 04/30/17 10:29 Dose: Not Given Clonidine HCl (Catapres-Tts3 0.3 Mg/24 Hr) 1 patch TD Q7D@1000 [facility] Last Admin: 04/28/17 13:28 Dose: Not Given Donepezil HCl (Aricept) 10 mg PO HS [facility] Last Admin: 04/29/17 22:02 Dose: 10 mg Heparin Sodium (Porcine) (Heparin) 5,000 units SC Q12 [facility] Last Admin: 04/30/17 10:29 Dose: Not Given Hydralazine HCl (Apresoline) 75 mg PO Q8H [facility] Last Admin: 04/30/17 07:31 Dose: 75 mg Acyclovir 400 mg/ Dextrose 100 mls @ 100 mls/hr IV Q24H [facility] Last Admin: 04/29/17 17:20 Dose: 100 mls/hr Losartan Potassium (Cozaar) 100 mg PO DAILY [facility] Last Admin: 04/30/17 10:29 Dose: Not Given Risperidone (Risperdal Tab) 0.5 mg PO HS [facility] Last Admin: 04/29/17 22:02 Dose: 0.5 mg Sevelamer Carbonate (Renvela) 800 mg PO TIDCC [facility] Last Admin: 04/30/17 08:05 Dose: 800 mg - Labs Labs: 04/30/17 08:00 04/30/17 08:00 PT 12.4 SECONDS (9.7-12.2) H 04/27/17 07:46 INR 1.1 04/27/17 07:46 APTT 32 SECONDS (21-34) 04/27/17 07:46 - Constitutional Appears: Non-toxic - Head Exam Head Exam: NORMAL INSPECTION - Eye Exam Eye Exam: Normal appearance Pupil Exam: PERRL - ENT Exam ENT Exam: Mucous Membranes Moist - Neck Exam Neck Exam: Full ROM - Respiratory Exam Respiratory Exam: NORMAL BREATHING PATTERN - Cardiovascular Exam Cardiovascular Exam: REGULAR RHYTHM - GI/Abdominal Exam GI & Abdominal Exam: Normal Bowel Sounds - Rectal Exam Rectal Exam: NORMAL INSPECTION - Exam Exam: NORMAL INSPECTION - Extremities Exam Additional comments: l thogh boulous lesion and uler - Neurological Exam Neurological Exam: Altered - Psychiatric Exam Psychiatric exam: Depressed - Skin Skin Exam: Normal Color Assessment and Plan - Assessment and Plan (Free Text) Assessment: ac AMS acute leasions thigh esrf Plan: as per orders
--- NOTE | 2017-04-30 12:30 | CP.PCM.PN ---
Subjective - Date & Time of Evaluation Date of Evaluation: 04/30/17 Time of Evaluation: 07:00 - Subjective Subjective: events noted cont contact precautions Objective - Vital Signs/Intake and Output Vital Signs (last 24 hours): Temp Pulse Resp BP Pulse Ox 98.5 F 90 20 166/81 H 99 04/30/17 09:35 04/30/17 09:35 04/30/17 09:35 04/30/17 11:35 04/30/17 09:35 Intake and Output: 04/30/17 04/30/17 06:59 18:59 Intake Total 400 Balance 400 - Medications Medications: Current Medications Amlodipine Besylate (Norvasc) 10 mg PO DAILY [facility] Last Admin: 04/30/17 10:29 Dose: Not Given Cinacalcet (Sensipar) 30 mg PO Q48H [facility] Last Admin: 04/30/17 10:29 Dose: Not Given Clonidine HCl (Catapres-Tts3 0.3 Mg/24 Hr) 1 patch TD Q7D@1000 [facility] Last Admin: 04/28/17 13:28 Dose: Not Given Donepezil HCl (Aricept) 10 mg PO HS [facility] Last Admin: 04/29/17 22:02 Dose: 10 mg Heparin Sodium (Porcine) (Heparin) 5,000 units SC Q12 [facility] Last Admin: 04/30/17 10:29 Dose: Not Given Hydralazine HCl (Apresoline) 75 mg PO Q8H [facility] Last Admin: 04/30/17 07:31 Dose: 75 mg Acyclovir 400 mg/ Dextrose 100 mls @ 100 mls/hr IV Q24H [facility] Last Admin: 04/29/17 17:20 Dose: 100 mls/hr Losartan Potassium (Cozaar) 100 mg PO DAILY [facility] Last Admin: 04/30/17 10:29 Dose: Not Given Risperidone (Risperdal Tab) 0.5 mg PO HS [facility] Last Admin: 04/29/17 22:02 Dose: 0.5 mg Sevelamer Carbonate (Renvela) 800 mg PO TIDCC [facility] Last Admin: 04/30/17 08:05 Dose: 800 mg - Labs Labs: 04/30/17 08:00 04/30/17 08:00 PT 12.4 SECONDS (9.7-12.2) H 04/27/17 07:46 INR 1.1 04/27/17 07:46 APTT 32 SECONDS (21-34) 04/27/17 07:46 - Constitutional Appears: Non-toxic, Chronically Ill - Head Exam Head Exam: NORMOCEPHALIC - Eye Exam Eye Exam: PERRL. absent: Scleral icterus - ENT Exam ENT Exam: Mucous Membranes Dry - Neck Exam Neck Exam: absent: Lymphadenopathy - Respiratory Exam Respiratory Exam: Decreased Breath Sounds - Cardiovascular Exam Cardiovascular Exam: REGULAR RHYTHM - GI/Abdominal Exam GI & Abdominal Exam: Distended, Soft - Rectal Exam Rectal Exam: Deferred - Exam Exam: NORMAL INSPECTION Assessment and Plan (1) Altered mental state Status: Acute (2) Anemia in ESRD (end-stage renal disease) Status: Acute (3) ESRD (end stage renal disease) Status: Acute (4) Herpes zoster Status: Acute (5) Hypertensive CKD, ESRD on dialysis Status: Acute (6) Chronic kidney disease-mineral and bone disorder Status: Acute (7) HTN (hypertension) Status: Acute (8) Rash Status: Acute (9) Weakness Status: Acute (10) Diabetes mellitus Status: Chronic (11) ESRD (end stage renal disease) on dialysis Status: Chronic (12) Hepatitis B Status: Chronic
[2017-04-30] MEDS: ACYCLOVIR IV SCH (18:13)
[2017-04-30] MEDS: WATER IV SCH (18:13)
[2017-04-30] MEDS: DEXTROSE 5% IV SCH (18:13)
--- NOTE | 2017-04-30 20:33 | CP.PCM.PN ---
Subjective - Date & Time of Evaluation Date of Evaluation: 04/30/17 Time of Evaluation: 20:05 - Subjective Subjective: No major changes, not interactive, rigidity. Objective - Vital Signs/Intake and Output Vital Signs (last 24 hours): Temp Pulse Resp BP Pulse Ox 97.2 F L 76 18 165/56 H 99 04/30/17 18:00 04/30/17 18:00 04/30/17 18:00 04/30/17 18:00 04/30/17 16:00 - Medications Medications: Current Medications Amlodipine Besylate (Norvasc) 10 mg PO DAILY [facility] Last Admin: 04/30/17 10:29 Dose: Not Given Cinacalcet (Sensipar) 30 mg PO Q48H [facility] Last Admin: 04/30/17 10:29 Dose: Not Given Clonidine HCl (Catapres-Tts3 0.3 Mg/24 Hr) 1 patch TD Q7D@1000 [facility] Last Admin: 04/28/17 13:28 Dose: Not Given Donepezil HCl (Aricept) 10 mg PO HS [facility] Last Admin: 04/29/17 22:02 Dose: 10 mg Heparin Sodium (Porcine) (Heparin) 5,000 units SC Q12 [facility] Last Admin: 04/30/17 10:29 Dose: Not Given Hydralazine HCl (Apresoline) 100 mg PO Q8 [facility] Losartan Potassium (Cozaar) 100 mg PO DAILY [facility] Last Admin: 04/30/17 10:29 Dose: Not Given Risperidone (Risperdal Tab) 0.5 mg PO HS [facility] Last Admin: 04/29/17 22:02 Dose: 0.5 mg Sevelamer Carbonate (Renvela) 800 mg PO TIDCC [facility] Last Admin: 04/30/17 18:12 Dose: 800 mg - Labs Labs: 04/30/17 08:00 04/30/17 08:00 PT 12.4 SECONDS (9.7-12.2) H 04/27/17 07:46 INR 1.1 04/27/17 07:46 APTT 32 SECONDS (21-34) 04/27/17 07:46 Assessment and Plan (1) CVA (cerebral vascular accident) Status: Acute (2) Altered mental state Status: Acute (3) Anemia Status: Acute (4) Anemia in ESRD (end-stage renal disease) Status: Acute (5) ESRD (end stage renal disease) Status: Acute (6) Herpes zoster Status: Acute (7) Hypertensive CKD, ESRD on dialysis Status: Acute (8) Blurred vision Status: Acute (9) Chronic kidney disease-mineral and bone disorder Status: Acute (10) Seizures Status: Acute
[2017-04-30 21:37] LABS: FOLATE 14.2 ng/mL
--- NOTE | 2017-05-01 03:54 | CON ---
PSYCHIATRIC CONSULTATION DATE: 04/30/2017 CHIEF COMPLAINT AND REASON FOR CONSULTATION: The patient is referred by Dr. Amanda Thayer for evaluation of change in mental status. The patient has history of dementia. HISTORY OF PRESENT ILLNESS: The patient is a 77-year-old male who is brought in by EMS for change in mental status. The patient is a known patient with end-stage renal disease, on dialysis. The patient was noted to be more lethargic, weak and unable to feed himself. The patient is referred for co-management for the change in mental status. The patient was seen today. He is on one-to-one, but noted to be very lethargic and could not give much information. Collateral information is given by the chart and also from the staff. The patient was noted by the staff today to be very lethargic. The patient has been really diagnosed of herpes zoster and also on review of his medications, the patient at home was taking Neurontin 300 mg p.o. q. 8 hours as well as Risperdal. In the chart, the patient was taking Risperdal 0.5 mg three times a day, but the dose needs to be confirmed. The patient also is on multiple doses of antihypertensive meds, but his meds were changed. The patient when seen today still has bouts of agitation. He was also noted to be very stiff and his speech seems to have poverty of speech. The patient is still agitated, has mittens and needs constant redirection. PAST PSYCHIATRIC HISTORY: History of dementia. The patient has been taking Risperdal and also taking Aricept at home. ALLERGIES: NO KNOWN DRUG ALLERGIES. PAST MEDICAL HISTORY: The patient has history of herpes zoster, end-stage renal disease, hypertension, history of anemia, history of CVA and seizures and history of blurring of vision. LIST OF CURRENT MEDICATIONS: The patient is currently taking following meds: Hydralazine, Aricept 10 mg, clonidine, losartan, Norvasc, heparin, Risperdal 0.5 mg at bedtime and Sensipar. LABORATORY DATA: On review of his labs, the patient's creatinine is 7.3, glucose is 190, BUN is 61 and WBC is 10.6. Other lab values: TSH is 3.3 and ammonia is 19. REVIEW OF SYSTEMS: The patient is drowsy, seen in his room with hand mittens, still very confused, mumbling a few words. He was moving his hands, but he seems to be bradykinetic. He is not in acute respiratory distress, not complaining of pain. No chest pain. Review of systems cannot be fully assessed as the patient is very drowsy and lethargic. He needs constant monitoring and he is trying to pull his lines. He is also mumbling to himself. The patient's affect seems to be very restricted. PHYSICAL EXAMINATION: VITAL SIGNS: Temperature is 98.7, pulse rate is 82, blood pressure is 170/60, respirations 20 and oxygen sat is 99%. MENTAL STATUS EXAMINATION: Elderly male, looks stated age, 5 feet and 11 inches. The patient is very lethargic, drowsy and confused. Affect is restricted to flat. Speech has poverty of speech, he speaks in a very low voice. Mood is dysphoric. Thought process is confused. Thought content, no overt paranoia. No suicidal ideation. Attention and memory seems to be limited. Insight and judgement are limited. Impulse control is guarded at this time. IMPRESSION: Delirium and metabolic encephalopathy, multifactorial, superimposed on dementia, most probably vascular type with mood changes. PLAN AND RECOMMENDATION: The patient is seen. Meds reviewed. We will keep the one-to-one monitoring for now. I did tell the nurse the patient is very lethargic. We will try to hold off the Risperdal one at 0.5 mg at bedtime as well as the Aricept. This psych medication if given with his hypertensive meds, can increase lethargy, especially the patient's hydralazine, losartan and amlodipine. The [id number] interaction, especially with psych medication can cause synergistic action and can cause lethargy. Also, the patient right before admission was taking Neurontin for his herpes zoster which can cause increased confusion, especially given in high doses. Agreed to keep the patient off Neurontin for now, especially the patient is exhibiting increasing confusion. We will monitor his blood pressure accordingly, but for now, we will hold off the psych medication as the patient is very lethargic and drowsy. In review of his medication also in Risperdal being a medication can cause parkinsonism as a side effect, but for now, we will hold off any change to the medication, I do suggest to change the Risperdal once the patient is more medically stable to change to Seroquel which has less action with dopamine and can cause less parkinsonian syndrome; however, his hypertension needs to be titrated before we adjusting his psych meds. Thank you for the consult. Shade Silver MD MTDCharley
[2017-05-01 07:27] LABS: HEMATOCRIT 27.9 % (35.0-51.0); MEAN CELL VOLUME 89.2 fL (80.0-94.0); MEAN CORPUSCULAR HEMOGLOBIN 28.7 pg (27.0-31.0); MEAN CORPUSCULAR HGB CONC 32.2 g/dL (33.0-37.0); MEAN PLATELET VOLUME 9.4 fL (7.2-11.7); WHITE BLOOD COUNT 14.7 K/uL (4.8-10.8)
--- NOTE | 2017-05-01 08:01 | CON ---
DATE: ADDENDUM OF THE SECOND CONSULTATION The patient had an MRI of the brain as well as CAT scan of the head that showed no acute abnormalities; however, we will try to check his B12 especially the man is an elderly and has history of dementia as well as folic acid. His TSH is within normal limits. Shade Silver MD
[2017-05-01 08:18] LABS: FREE T4 1.74 ng/dL (0.78-2.19)
[2017-05-01 08:33] LABS: THYROID STIMULATING HORMONE 2.68 mIU/L (0.46-4.68)
--- NOTE | 2017-05-01 12:07 | CARD ---
APPROVED REPORT EKG Measurement Heart [id number] <Conclusion> Sinus bradycardia Otherwise normal ECG
--- NOTE | 2017-05-01 12:22 | CP.PCM.PN ---
Subjective - Date & Time of Evaluation Date of Evaluation: 05/01/17 Time of Evaluation: 12:19 - Subjective Subjective: pt seen and examined confused desnt comunicate no distress Objective - Vital Signs/Intake and Output Vital Signs (last 24 hours): Temp Pulse Resp BP Pulse Ox 98.8 F 78 18 163/61 H 98 05/01/17 08:04 05/01/17 08:04 05/01/17 08:04 05/01/17 08:04 05/01/17 08:04 - Medications Medications: Current Medications Amlodipine Besylate (Norvasc) 10 mg PO DAILY [facility] Last Admin: 05/01/17 09:11 Dose: 10 mg Cinacalcet (Sensipar) 30 mg PO Q48H [facility] Last Admin: 04/30/17 10:29 Dose: Not Given Clonidine HCl (Catapres-Tts3 0.3 Mg/24 Hr) 1 patch TD Q7D@1000 [facility] Last Admin: 04/28/17 13:28 Dose: Not Given Clonidine HCl (Catapres) 0.1 mg PO BID [facility] Donepezil HCl (Aricept) 10 mg PO HS [facility] Last Admin: 04/29/17 22:02 Dose: 10 mg Heparin Sodium (Porcine) (Heparin) 5,000 units SC Q12 [facility] Last Admin: 05/01/17 09:11 Dose: 5,000 units Hydralazine HCl (Apresoline) 100 mg PO Q8 [facility] Last Admin: 05/01/17 05:41 Dose: 100 mg Losartan Potassium (Cozaar) 100 mg PO DAILY [facility] Last Admin: 05/01/17 09:11 Dose: 100 mg Risperidone (Risperdal Tab) 0.5 mg PO HS [facility] Last Admin: 04/29/17 22:02 Dose: 0.5 mg Sevelamer Carbonate (Renvela) 800 mg PO TIDCC [facility] Last Admin: 05/01/17 08:47 Dose: 800 mg - Labs Labs: 05/01/17 07:10 04/30/17 08:00 PT 12.4 SECONDS (9.7-12.2) H 04/27/17 07:46 INR 1.1 04/27/17 07:46 APTT 32 SECONDS (21-34) 04/27/17 07:46 - Constitutional Appears: Non-toxic - Head Exam Head Exam: NORMAL INSPECTION - Eye Exam Eye Exam: Normal appearance Pupil Exam: NORMAL ACCOMODATION - ENT Exam ENT Exam: Mucous Membranes Moist - Neck Exam Neck Exam: Full ROM - Respiratory Exam Respiratory Exam: Clear to Ausculation Bilateral - Cardiovascular Exam Cardiovascular Exam: REGULAR RHYTHM - GI/Abdominal Exam GI & Abdominal Exam: Normal Bowel Sounds - Extremities Exam Additional comments: vesicular bulous leasions thigh - Neurological Exam Neurological Exam: Alert - Skin Additional comments: mri brain atrphy Assessment and Plan - Assessment and Plan (Free Text) Assessment: acute vesicular leasions thigh AMS BRAIN ATROPHY ESRF Plan: CONT SAME AWAITE CULTURE
[2017-05-01 13:59] LABS: 18 KD (IGG) BAND Nonreactive; 23 KD (IGG) BAND Nonreactive; 23 KD (IGM) BAND Nonreactive; 28 KD (IGG) BAND Nonreactive; 30 KD (IGG) BAND Nonreactive; 39 KD (IGG) BAND Nonreactive; 39 KD (IGM) BAND Nonreactive; 41 KD (IGG) BAND Nonreactive; 41 KD (IGM) BAND Nonreactive; 45 KD (IGG) BAND Nonreactive; 58 KD (IGG) BAND Nonreactive; 66 KD (IGG) BAND Nonreactive; 93 KD (IGG) BAND Nonreactive; LYME DISEASE INTERP (IGG) Negative (Negative)
--- NOTE | 2017-05-01 16:11 | CP.PCM.PN ---
Subjective - Date & Time of Evaluation Date of Evaluation: 05/01/17 Time of Evaluation: 07:00 - Subjective Subjective: iv rx in progress acyclovir ordered discussed with dr lala Objective - Vital Signs/Intake and Output Vital Signs (last 24 hours): Temp Pulse Resp BP Pulse Ox 98.8 F 72 18 148/62 98 05/01/17 08:04 05/01/17 14:58 05/01/17 08:04 05/01/17 14:58 05/01/17 08:04 - Medications Medications: Current Medications Amlodipine Besylate (Norvasc) 10 mg PO DAILY [facility] Last Admin: 05/01/17 09:11 Dose: 10 mg Cinacalcet (Sensipar) 30 mg PO Q48H [facility] Last Admin: 04/30/17 10:29 Dose: Not Given Clonidine HCl (Catapres-Tts3 0.3 Mg/24 Hr) 1 patch TD Q7D@1000 [facility] Last Admin: 04/28/17 13:28 Dose: Not Given Clonidine HCl (Catapres) 0.1 mg PO BID [facility] Donepezil HCl (Aricept) 10 mg PO HS [facility] Last Admin: 04/29/17 22:02 Dose: 10 mg Heparin Sodium (Porcine) (Heparin) 5,000 units SC Q12 [facility] Last Admin: 05/01/17 09:11 Dose: 5,000 units Hydralazine HCl (Apresoline) 100 mg PO Q8 [facility] Last Admin: 05/01/17 14:59 Dose: 100 mg Acyclovir 400 mg/ Sodium (Chloride) 100 mls @ 100 mls/hr IV DAILY [facility] Losartan Potassium (Cozaar) 100 mg PO DAILY [facility] Last Admin: 05/01/17 09:11 Dose: 100 mg Risperidone (Risperdal Tab) 0.5 mg PO HS [facility] Last Admin: 04/29/17 22:02 Dose: 0.5 mg Sevelamer Carbonate (Renvela) 800 mg PO TIDCC [facility] Last Admin: 05/01/17 12:55 Dose: 800 mg - Labs Labs: 05/01/17 07:10 04/30/17 08:00 PT 12.4 SECONDS (9.7-12.2) H 04/27/17 07:46 INR 1.1 04/27/17 07:46 APTT 32 SECONDS (21-34) 04/27/17 07:46 - Constitutional Appears: Non-toxic, Chronically Ill - Head Exam Head Exam: NORMOCEPHALIC - Eye Exam Eye Exam: PERRL - ENT Exam ENT Exam: Mucous Membranes Dry - Neck Exam Neck Exam: absent: Lymphadenopathy - Respiratory Exam Respiratory Exam: Decreased Breath Sounds - Cardiovascular Exam Cardiovascular Exam: REGULAR RHYTHM - GI/Abdominal Exam GI & Abdominal Exam: Distended, Soft - Rectal Exam Rectal Exam: Deferred - Exam Exam: NORMAL INSPECTION - Extremities Exam Extremities Exam: absent: Pedal Edema - Back Exam Back Exam: absent: CVA tenderness (L), CVA tenderness (R) - Neurological Exam Neurological Exam: Altered Assessment and Plan (1) Altered mental state Status: Acute (2) Anemia in ESRD (end-stage renal disease) Status: Acute (3) ESRD (end stage renal disease) Status: Acute (4) Herpes zoster Status: Acute (5) Hypertensive CKD, ESRD on dialysis Status: Acute (6) Chronic kidney disease-mineral and bone disorder Status: Acute (7) HTN (hypertension) Status: Acute (8) Rash Status: Acute (9) Weakness Status: Acute (10) Diabetes mellitus Status: Chronic (11) ESRD (end stage renal disease) on dialysis Status: Chronic (12) Hepatitis B Status: Chronic
--- NOTE | 2017-05-01 16:28 | PN ---
DATE: 05/01/2017 SUBJECTIVE: The patient seen, still confused but more alert. The patient was able to eat today with assistance from the staff. Psych medications were on hold as the patient was very lethargic yesterday. He still has bouts of agitation, but more manageable. PHYSICAL EXAMINATION VITAL SIGNS: Temperature is 98.8, pulse rate 70, blood pressure 163/61, respirations 18, oxygen saturation 98%. REVIEW OF SYSTEMS: GENERAL: The patient is more alert, still not very verbal, but able to respond with few words, seen today with staff eating, still confused. SKIN: No diaphoresis. HEENT: No headache or dizziness. RESPIRATORY: No dyspnea. CARDIOVASCULAR: No chest pain. GASTROINTESTINAL: The patient eating with assistance. No nausea. No vomiting. EXTREMITIES: The patient is still bradykinetic and stiff. MUSCULOSKELETAL: Feels weak. NEUROLOGIC: Alert with periods of confusion. Mental status of the patient seems to be waxing and waning. GENITOURINARY: No dysuria. MENTAL STATUS EXAMINATION: Elderly male who looks stated age, still confused, oriented x1 only to person. Mood is dysphoric. Affect is constricted. Speech is slow. Thought process confused. Thought content, no overt paranoia, hallucinations. No suicidal or homicidal ideation. Attention and memory seems to be limited. Insight and judgment limited. Impulse control is guarded at this time. LABORATORY DATA: Review of his labs, the patient had a B12, which was greater than 1000, folate is 14.2, free T4 is 1.74, and TSH 3rd generation is 2.68. IMPRESSION: Delirium with metabolic encephalopathy, multifactorial, superimposed on dementia senile onset vascular type of mood changes. PLAN AND RECOMMENDATION: The patient was seen, medications reviewed, continue present management. We will keep the patient off psych medications for now. We will just keep the one-to-one monitoring. Continue dialysis as ordered, also monitor his blood pressure. The patient is, according to the staff, a resident of [facility]. The patient will go back to [facility] for buttermaker care once medically stable. For now, we will keep the patient off on psych medication as the patient was very drowsy and also having problems with his blood pressure earlier. Shade Silver, MD [facility] # [id number]
--- NOTE | 2017-05-01 18:53 | CP.PCM.PN ---
Subjective - Date & Time of Evaluation Date of Evaluation: 05/01/17 Time of Evaluation: 18:00 Objective - Vital Signs/Intake and Output Vital Signs (last 24 hours): Temp Pulse Resp BP Pulse Ox 98.7 F 75 18 150/63 99 05/01/17 17:40 05/01/17 17:40 05/01/17 17:40 05/01/17 17:40 05/01/17 17:40 Intake and Output: 05/01/17 05/01/17 06:59 18:59 Intake Total 400 Balance 400 - Medications Medications: Current Medications Amlodipine Besylate (Norvasc) 10 mg PO DAILY [facility] Last Admin: 05/01/17 09:11 Dose: 10 mg Cinacalcet (Sensipar) 30 mg PO Q48H [facility] Last Admin: 04/30/17 10:29 Dose: Not Given Clonidine HCl (Catapres-Tts3 0.3 Mg/24 Hr) 1 patch TD Q7D@1000 [facility] Last Admin: 04/28/17 13:28 Dose: Not Given Clonidine HCl (Catapres) 0.1 mg PO BID [facility] Last Admin: 05/01/17 17:43 Dose: 0.1 mg Donepezil HCl (Aricept) 10 mg PO HS [facility] Last Admin: 04/29/17 22:02 Dose: 10 mg Heparin Sodium (Porcine) (Heparin) 5,000 units SC Q12 [facility] Last Admin: 05/01/17 09:11 Dose: 5,000 units Hydralazine HCl (Apresoline) 100 mg PO Q8 [facility] Last Admin: 05/01/17 14:59 Dose: 100 mg Acyclovir 400 mg/ Sodium (Chloride) 100 mls @ 100 mls/hr IV DAILY [facility] Losartan Potassium (Cozaar) 100 mg PO DAILY [facility] Last Admin: 05/01/17 09:11 Dose: 100 mg Risperidone (Risperdal Tab) 0.5 mg PO HS [facility] Last Admin: 04/29/17 22:02 Dose: 0.5 mg Sevelamer Carbonate (Renvela) 800 mg PO TIDCC [facility] Last Admin: 05/01/17 17:43 Dose: 800 mg - Labs Labs: 05/01/17 07:10 04/30/17 08:00 PT 12.4 SECONDS (9.7-12.2) H 04/27/17 07:46 INR 1.1 04/27/17 07:46 APTT 32 SECONDS (21-34) 04/27/17 07:46 Assessment and Plan (1) ESRD (end stage renal disease) Status: Acute (2) Hypertensive CKD, ESRD on dialysis Status: Acute (3) Anemia in ESRD (end-stage renal disease) Status: Acute (4) Herpes zoster Status: Acute (5) Altered mental state Status: Acute (6) Chronic kidney disease-mineral and bone disorder Status: Acute (7) Hypoglycemia Status: Acute
--- NOTE | 2017-05-01 21:02 | CP.PCM.PN ---
Subjective - Date & Time of Evaluation Date of Evaluation: 05/01/17 Time of Evaluation: 21:01 - Subjective Subjective: o changes, still rigid, poor response. Unfavorable prognosis. Objective - Vital Signs/Intake and Output Vital Signs (last 24 hours): Temp Pulse Resp BP Pulse Ox 98.7 F 75 18 150/63 99 05/01/17 17:40 05/01/17 17:40 05/01/17 17:40 05/01/17 17:40 05/01/17 17:40 Intake and Output: 05/01/17 05/02/17 18:59 06:59 Intake Total 400 Balance 400 - Medications Medications: Current Medications Amlodipine Besylate (Norvasc) 10 mg PO DAILY [facility] Last Admin: 05/01/17 09:11 Dose: 10 mg Cinacalcet (Sensipar) 30 mg PO Q48H [facility] Last Admin: 04/30/17 10:29 Dose: Not Given Clonidine HCl (Catapres-Tts3 0.3 Mg/24 Hr) 1 patch TD Q7D@1000 [facility] Last Admin: 04/28/17 13:28 Dose: Not Given Clonidine HCl (Catapres) 0.1 mg PO BID [facility] Last Admin: 05/01/17 17:43 Dose: 0.1 mg Donepezil HCl (Aricept) 10 mg PO HS [facility] Last Admin: 04/29/17 22:02 Dose: 10 mg Heparin Sodium (Porcine) (Heparin) 5,000 units SC Q12 [facility] Last Admin: 05/01/17 09:11 Dose: 5,000 units Hydralazine HCl (Apresoline) 100 mg PO Q8 [facility] Last Admin: 05/01/17 14:59 Dose: 100 mg Acyclovir 400 mg/ Sodium (Chloride) 100 mls @ 100 mls/hr IV DAILY [facility] Losartan Potassium (Cozaar) 100 mg PO DAILY [facility] Last Admin: 05/01/17 09:11 Dose: 100 mg Risperidone (Risperdal Tab) 0.5 mg PO HS [facility] Last Admin: 04/29/17 22:02 Dose: 0.5 mg Sevelamer Carbonate (Renvela) 800 mg PO TIDCC [facility] Last Admin: 05/01/17 17:43 Dose: 800 mg - Labs Labs: 05/01/17 07:10 04/30/17 08:00 PT 12.4 SECONDS (9.7-12.2) H 04/27/17 07:46 INR 1.1 04/27/17 07:46 APTT 32 SECONDS (21-34) 04/27/17 07:46 Assessment and Plan (1) CVA (cerebral vascular accident) Status: Acute (2) Altered mental state Status: Acute (3) Anemia Status: Acute (4) Anemia in ESRD (end-stage renal disease) Status: Acute (5) ESRD (end stage renal disease) Status: Acute (6) Herpes zoster Status: Acute (7) Hypertensive CKD, ESRD on dialysis Status: Acute (8) Blurred vision Status: Acute (9) Chronic kidney disease-mineral and bone disorder Status: Acute (10) Seizures Status: Acute
[2017-05-02 07:18] LABS: HEMATOCRIT 26.1 % (35.0-51.0); MEAN CORPUSCULAR HEMOGLOBIN 28.7 pg (27.0-31.0); MEAN CORPUSCULAR HGB CONC 32.3 g/dL (33.0-37.0); MEAN PLATELET VOLUME 9.9 fL (7.2-11.7); WHITE BLOOD COUNT 11.1 K/uL (4.8-10.8)
--- NOTE | 2017-05-02 10:39 | CP.PCM.PN ---
<Jazz Joshi - Last Filed: 05/02/17 14:06> Subjective - Date & Time of Evaluation Date of Evaluation: 05/02/17 Time of Evaluation: 09:00 - Subjective Subjective: Nephrology Note for Dr. Hebert's Service Patient was seen and examined at bedside. No acute events overnight as per nursing. Patient is tolerating diet well as per CP. Patient is more lethargic than baseline. Objective - Vital Signs/Intake and Output Vital Signs (last 24 hours): Temp Pulse Resp BP Pulse Ox 98.1 F 74 18 138/62 100 05/02/17 07:39 05/02/17 09:28 05/02/17 07:39 05/02/17 09:28 05/02/17 07:39 - Medications Medications: Current Medications Amlodipine Besylate (Norvasc) 10 mg PO DAILY [facility] Last Admin: 05/02/17 09:28 Dose: 10 mg Cinacalcet (Sensipar) 30 mg PO Q48H [facility] Last Admin: 04/30/17 10:29 Dose: Not Given Clonidine HCl (Catapres-Tts3 0.3 Mg/24 Hr) 1 patch TD Q7D@1000 [facility] Last Admin: 04/28/17 13:28 Dose: Not Given Clonidine HCl (Catapres) 0.1 mg PO BID [facility] Last Admin: 05/01/17 17:43 Dose: 0.1 mg Donepezil HCl (Aricept) 10 mg PO HS [facility] Last Admin: 04/29/17 22:02 Dose: 10 mg Heparin Sodium (Porcine) (Heparin) 5,000 units SC Q12 [facility] Last Admin: 05/01/17 21:42 Dose: 5,000 units Hydralazine HCl (Apresoline) 100 mg PO Q8 [facility] Last Admin: 05/02/17 06:30 Dose: 100 mg Acyclovir 400 mg/ Dextrose 100 mls @ 100 mls/hr IV DAILY [facility] Losartan Potassium (Cozaar) 100 mg PO DAILY [facility] Last Admin: 05/01/17 09:11 Dose: 100 mg Risperidone (Risperdal Tab) 0.5 mg PO HS [facility] Last Admin: 04/29/17 22:02 Dose: 0.5 mg Sevelamer Carbonate (Renvela) 800 mg PO TIDCC [facility] Last Admin: 11/09/17 08:22 Dose: 800 mg - Labs Labs: 05/02/17 07:06 04/30/17 08:00 PT 12.4 SECONDS (9.7-12.2) H 04/27/17 07:46 INR 1.1 04/27/17 07:46 APTT 32 SECONDS (21-34) 04/27/17 07:46 - Additional Findings Additional findings: - Constitutional Appears: Non-toxic, No Acute Distress - Head Exam Head Exam: NORMAL INSPECTION - Eye Exam Eye Exam: Normal appearance. absent: Scleral icterus - ENT Exam ENT Exam: Mucous Membranes Moist - Respiratory Exam Respiratory Exam: Clear to Ausculation Bilateral. absent: Rales, Rhonchi, Wheezes - Cardiovascular Exam Cardiovascular Exam: RRR, +S1, +S2 - GI/Abdominal Exam GI & Abdominal Exam: Soft. absent: Distended, Tenderness - Extremities Exam Additional comments: left AVF graft access mild b/l lower leg edema, left foot dressing c/d/i Left thigh with blisters, some draining - Neurological Exam Neurological Exam: Alert, Awake - Psychiatric Exam Psychiatric exam: absent: Agitated - Skin Skin Exam: Warm. absent: Cyanosis Assessment and Plan - Assessment and Plan (Free Text) Assessment: 77 M with PMHx of HTN, DM, dementia, bedbound secondary to L foot drop, and ESRD on HD (TTS), admitted with lethargy and transient hypotension. Plan: (1) ESRD (end stage renal disease) Assessment & Plan: Stable electrolyte status, no overt volume overload but difficulty assessing dry weight due to inability to get standing weights Will challenge with UF on HD as this is the mainstay of treatment of HTN for ESRD patients (2) Hypertensive CKD, ESRD on dialysis Assessment & Plan: BP uncontrolled Hydralazine increased to 100 mg PO TID, continue with Norvasc 10mg PO daily and Cozaar 100mg PO daily Challenging with UF on HD as above Recommend to avoid clonidine to prevent hypotension/bradycardia (which led to initial presentation) (3) Anemia in ESRD (end-stage renal disease) Assessment & Plan: Hgb below goal - baseline 9-10. On high dose of long acting EPO formulation as outpatient, will continue same (4) Herpes zoster Assessment & Plan: On IV acyclovir, should re-dose after HD (5) Altered mental state Assessment & Plan: Overall worsening dementia; from our end we will avoid drastic drops in BP (6) Chronic kidney disease-mineral and bone disorder Assessment & Plan: On sensipar 30 mg q48h for high PTH, continue; continue sevelamer 1 tab w/ meals for phos control (7) Hypoglycemia (8) Hepatitis B DW Madelyn Otero DO, PGY-1 <Josse Hebert - Last Filed: 05/03/17 08:30> Objective - Vital Signs/Intake and Output Vital Signs (last 24 hours): Temp Pulse Resp BP Pulse Ox 98.3 F 84 20 153/65 H 97 05/02/17 23:38 05/02/17 23:40 05/02/17 23:38 05/02/17 23:38 05/02/17 23:38 Intake and Output: 05/03/17 05/03/17 06:59 18:59 Intake Total 60 Balance 60 - Medications Medications: Current Medications Amlodipine Besylate (Norvasc) 10 mg PO DAILY [facility] Last Admin: 05/02/17 09:28 Dose: 10 mg Cinacalcet (Sensipar) 30 mg PO Q48H [facility] Last Admin: 05/02/17 14:47 Dose: 30 mg Donepezil HCl (Aricept) 10 mg PO HS [facility] Last Admin: 04/29/17 22:02 Dose: 10 mg Heparin Sodium (Porcine) (Heparin) 5,000 units SC Q12 [facility] Last Admin: 05/02/17 21:16 Dose: 5,000 units Hydralazine HCl (Apresoline) 100 mg PO Q8 [facility] Last Admin: 05/03/17 06:30 Dose: 100 mg Acyclovir 400 mg/ Dextrose 100 mls @ 100 mls/hr IV DAILY [facility] Last Admin: 05/02/17 14:46 Dose: 100 mls/hr Losartan Potassium (Cozaar) 100 mg PO DAILY [facility] Last Admin: 05/02/17 14:48 Dose: 100 mg Risperidone (Risperdal Tab) 0.5 mg PO HS [facility] Last Admin: 04/29/17 22:02 Dose: 0.5 mg Sevelamer Carbonate (Renvela) 800 mg PO TIDCC [facility] Last Admin: 05/02/17 17:57 Dose: Not Given - Labs Labs: 05/03/17 07:41 05/03/17 07:41 PT 12.4 SECONDS (9.7-12.2) H 04/27/17 07:46 INR 1.1 04/27/17 07:46 APTT 32 SECONDS (21-34) 04/27/17 07:46 Assessment and Plan (1) ESRD (end stage renal disease) Status: Acute (2) Hypertensive CKD, ESRD on dialysis Status: Acute (3) Anemia in ESRD (end-stage renal disease) Status: Acute (4) Herpes zoster Status: Acute (5) Altered mental state Status: Acute (6) Chronic kidney disease-mineral and bone disorder Status: Acute (7) Hypoglycemia Status: Acute Attending/Attestation - Attestation I have personally seen and examined this patient.: Yes I have fully participated in the care of the patient.: Yes I have reviewed all pertinent clinical information, including history, physical exam and plan: Yes Notes (Text): Patient seen and examined; I agree with the resident's note as above with the following edits: 77 yo M w/ pmh of htn, dm, dementia, untreated hep B, L foot drop, and ESRD on HD, admitted with AMS/lethargy; Patient's mental status is waxing/waning but definitely overall worse than his baseline (was able to verbalize and tell you his condition as recently as ~10 days ago when I last saw him as an outpatient); Now off all meds that may be contributory (including psychotropic meds and clonidine) but with no improvement; Still has active zoster lesion on L thigh (one bullae present, denuded areas not yet healed); on acyclovir dosed for HD; discussed with ID whether presumed zoster may be causing neuro manifestations and he is suggesting LP; Wound also growing gram neg perfecto and gram pos cocci; ID aware, will follow recs as patient may need IV abx dosed for HD; HTN better controlled on increased dose of hydralazine 100 mg q8h; can increase to q6h if needed; continue losartan and amlodipine (need to ensure the meds are dosed even on HD days, can be given after treatment); we have previously given him prn clonidine but this resulted in hypotension/bradycardia at outpatient HD on day of admission; for now we can tolerate SBP ~150; also, we have been doing aggressive UF on HD which will also help BP; Anemia below goal; was on long acting EPO (mircera 200 mcg q2w), will give aranesp 100 mcg on next HD; CKD MBD, continue sensipar 30 mg q48h for high PTH; continue sevelamer 1 tab w/ meals for phos control;
[2017-05-02] MEDS: ACYCLOVIR IV SCH (14:46)
[2017-05-02] MEDS: WATER IV SCH (14:46)
[2017-05-02] MEDS: DEXTROSE 5% IV SCH (14:46)
--- NOTE | 2017-05-02 15:13 | PN ---
DATE: 05/02/2017 SUBJECTIVE: The patient is seen. The patient is still very drowsy despite the psych meds have been hold. Review of the meds, the patient is on hydralazine, Catapres both p.o. and patch as well as on Losartan and Norvasc. The patient's current blood pressure is 138/62. Note that Catapres can cause lethargy as a side effect especially in conjunction with other meds. I did suggest the Catapres could be reduced especially the patient is severely lethargic and confused. The patient has baseline dementia, but he states that of the medicines that are noted on the chart the Catapres can cause lethargy as a side effect and the meds can be probably streamlined. PHYSICAL EXAMINATION: CURRENT VITAL SIGNS: Temperature 98.1, pulse is 74, blood pressure is 138/62, respirations 18, O2 saturation 100%. REVIEW OF SYSTEMS: GENERAL: The patient is 1:1 for close monitoring. Still lethargic, but eating with assistance. SKIN: No diaphoresis. HEENT: No headache or dizziness. NECK: Supple. RESPIRATORY: Not in acute respiratory distress. CARDIOVASCULAR: No chest pain. GASTROINTESTINAL: Appetite is variable due to lethargy. EXTREMITIES: The patient is very rigid even though he is off Risperdal. NEUROLOGIC: Still confused, drowsy, but arousable. MENTAL STATUS EXAMINATION: An elderly male, looks stated age, very drowsy. Speech is slow. Affect restricted. Mood is dysphoric oriented x1. Thought process confused. Thought content no overt hallucinations, paranoia or suicidal ideation. Attention and memory seems to be impaired. Insight and judgment impaired. Impulse control is fair at this time. IMPRESSION: Delirium, metabolic encephalopathy, multifactorial probably drug induced, superimposed dementia. PLAN AND RECOMMENDATIONS: The patient is seen. Meds reviewed. I just suggest to keep patient off Aricept and Risperdal for now and if it possible clonidine medication can be reduced. The patient is on patch as well as on p.o. Other medications noted in the chart, the patient is on hydralazine, clonidine, Norvasc and Losartan. Clonidine can cause lethargy as a side effect especially in elderly. Thank you very much. Shade Silver MD [facility] # [id number]
[2017-05-02 16:07] VITALS: RESP 20
--- NOTE | 2017-05-02 19:13 | CP.PCM.PN ---
Subjective - Date & Time of Evaluation Date of Evaluation: 05/02/17 Time of Evaluation: 08:00 - Subjective Subjective: events noted discussed with dr richardson consider skin bx would also consider LP if dr lala agrees Objective - Vital Signs/Intake and Output Vital Signs (last 24 hours): Temp Pulse Resp BP Pulse Ox 100.2 F H 85 20 169/71 H 99 05/02/17 15:00 05/02/17 15:00 05/02/17 15:00 05/02/17 15:00 05/02/17 14:45 - Medications Medications: Current Medications Amlodipine Besylate (Norvasc) 10 mg PO DAILY [facility] Last Admin: 05/02/17 09:28 Dose: 10 mg Cinacalcet (Sensipar) 30 mg PO Q48H [facility] Last Admin: 05/02/17 14:47 Dose: 30 mg Donepezil HCl (Aricept) 10 mg PO HS [facility] Last Admin: 04/29/17 22:02 Dose: 10 mg Heparin Sodium (Porcine) (Heparin) 5,000 units SC Q12 [facility] Last Admin: 05/02/17 10:00 Dose: Not Given Hydralazine HCl (Apresoline) 100 mg PO Q8 [facility] Last Admin: 05/02/17 14:48 Dose: 100 mg Acyclovir 400 mg/ Dextrose 100 mls @ 100 mls/hr IV DAILY [facility] Last Admin: 05/02/17 14:46 Dose: 100 mls/hr Losartan Potassium (Cozaar) 100 mg PO DAILY [facility] Last Admin: 05/02/17 14:48 Dose: 100 mg Risperidone (Risperdal Tab) 0.5 mg PO HS [facility] Last Admin: 04/29/17 22:02 Dose: 0.5 mg Sevelamer Carbonate (Renvela) 800 mg PO TIDCC [facility] Last Admin: 05/02/17 17:57 Dose: Not Given - Labs Labs: 05/02/17 07:06 04/30/17 08:00 PT 12.4 SECONDS (9.7-12.2) H 04/27/17 07:46 INR 1.1 04/27/17 07:46 APTT 32 SECONDS (21-34) 04/27/17 07:46 Assessment and Plan (1) Altered mental state Status: Acute (2) Anemia in ESRD (end-stage renal disease) Status: Acute (3) ESRD (end stage renal disease) Status: Acute (4) Herpes zoster Status: Acute (5) Hypertensive CKD, ESRD on dialysis Status: Acute (6) Chronic kidney disease-mineral and bone disorder Status: Acute (7) HTN (hypertension) Status: Acute (8) Rash Status: Acute (9) Weakness Status: Acute (10) Diabetes mellitus Status: Chronic (11) ESRD (end stage renal disease) on dialysis Status: Chronic (12) Hepatitis B Status: Chronic
--- NOTE | 2017-05-02 21:34 | CP.PCM.PN ---
Subjective - Date & Time of Evaluation Date of Evaluation: 05/02/17 Time of Evaluation: 17:35 - Subjective Subjective: Dr Barriga is suggesting LP, it is an excellent solution, Anesthesiology all Intervention Radiology might perform it Objective - Vital Signs/Intake and Output Vital Signs (last 24 hours): Temp Pulse Resp BP Pulse Ox 100.2 F H 74 20 169/71 H 99 05/02/17 15:00 05/02/17 19:55 05/02/17 15:00 05/02/17 15:00 05/02/17 14:45 - Medications Medications: Current Medications Amlodipine Besylate (Norvasc) 10 mg PO DAILY [facility] Last Admin: 05/02/17 09:28 Dose: 10 mg Cinacalcet (Sensipar) 30 mg PO Q48H [facility] Last Admin: 05/02/17 14:47 Dose: 30 mg Donepezil HCl (Aricept) 10 mg PO HS [facility] Last Admin: 04/29/17 22:02 Dose: 10 mg Heparin Sodium (Porcine) (Heparin) 5,000 units SC Q12 [facility] Last Admin: 05/02/17 21:16 Dose: 5,000 units Hydralazine HCl (Apresoline) 100 mg PO Q8 [facility] Last Admin: 05/02/17 21:17 Dose: 100 mg Acyclovir 400 mg/ Dextrose 100 mls @ 100 mls/hr IV DAILY [facility] Last Admin: 05/02/17 14:46 Dose: 100 mls/hr Losartan Potassium (Cozaar) 100 mg PO DAILY [facility] Last Admin: 05/02/17 14:48 Dose: 100 mg Risperidone (Risperdal Tab) 0.5 mg PO HS [facility] Last Admin: 04/29/17 22:02 Dose: 0.5 mg Sevelamer Carbonate (Renvela) 800 mg PO TIDCC [facility] Last Admin: 05/02/17 17:57 Dose: Not Given - Labs Labs: 05/02/17 07:06 04/30/17 08:00 PT 12.4 SECONDS (9.7-12.2) H 04/27/17 07:46 INR 1.1 04/27/17 07:46 APTT 32 SECONDS (21-34) 04/27/17 07:46 Assessment and Plan (1) CVA (cerebral vascular accident) Status: Acute (2) Altered mental state Status: Acute (3) Anemia Status: Acute (4) Anemia in ESRD (end-stage renal disease) Status: Acute (5) ESRD (end stage renal disease) Status: Acute (6) Herpes zoster Status: Acute (7) Hypertensive CKD, ESRD on dialysis Status: Acute (8) Blurred vision Status: Acute (9) Chronic kidney disease-mineral and bone disorder Status: Acute (10) Seizures Status: Acute
[2017-05-03 00:43] VITALS: TEMP 98.3
[2017-05-03 07:47] LABS: BASO # 0.1 K/uL (0.0-0.2); BASO % 0.8 % (0.0-2.0); EOS # 0.1 K/uL (0.0-0.7); EOS % 1.6 % (0.0-4.0); HEMATOCRIT 26.9 % (35.0-51.0); LYMPH # 0.8 K/uL (1.0-4.3); MEAN CELL VOLUME 89.2 fL (80.0-94.0); MEAN CORPUSCULAR HEMOGLOBIN 29.2 pg (27.0-31.0); MEAN CORPUSCULAR HGB CONC 32.8 g/dL (33.0-37.0); MEAN PLATELET VOLUME 9.2 fL (7.2-11.7); MONO # 1.4 K/uL (0.0-0.8); MONO % 15.6 % (0.0-10.0); NRBC % 0.1 % (0.0-2.0); PLATELET COUNT 167 K/uL (130-400); RED CELL DISTRIBUTION WIDTH 16.5 % (11.5-14.5); WHITE BLOOD COUNT 8.9 K/uL (4.8-10.8)
[2017-05-03 07:58] LABS: POTASSIUM 4.1 mmol/L (3.6-5.2)
[2017-05-03 08:00] LABS: BILIRUBIN,TOTAL 0.7 mg/dL (0.2-1.3)
[2017-05-03 08:02] LABS: ALB/GLOB RATIO 0.8 (1.0-2.1); TOTAL PROTEIN 7.6 g/dL (6.3-8.3)
[2017-05-03 09:24] LABS: NEUTROPHIL 81 % (50-75); TOTAL CELLS COUNTED 100
--- NOTE | 2017-05-03 09:49 | CP.PCM.PN ---
Subjective - Date & Time of Evaluation Date of Evaluation: 05/03/17 Time of Evaluation: 09:47 - Subjective Subjective: pt awake comfortable demented Objective - Vital Signs/Intake and Output Vital Signs (last 24 hours): Temp Pulse Resp BP Pulse Ox 98.3 F 84 20 153/65 H 97 05/02/17 23:38 05/02/17 23:40 05/02/17 23:38 05/02/17 23:38 05/02/17 23:38 Intake and Output: 05/03/17 05/03/17 06:59 18:59 Intake Total 60 Balance 60 - Medications Medications: Current Medications Amlodipine Besylate (Norvasc) 10 mg PO DAILY [facility] Last Admin: 05/02/17 09:28 Dose: 10 mg Cinacalcet (Sensipar) 30 mg PO Q48H [facility] Last Admin: 05/02/17 14:47 Dose: 30 mg Donepezil HCl (Aricept) 10 mg PO HS [facility] Last Admin: 04/29/17 22:02 Dose: 10 mg Heparin Sodium (Porcine) (Heparin) 5,000 units SC Q12 [facility] Last Admin: 05/02/17 21:16 Dose: 5,000 units Hydralazine HCl (Apresoline) 100 mg PO Q8 [facility] Last Admin: 05/03/17 06:30 Dose: 100 mg Acyclovir 400 mg/ Dextrose 100 mls @ 100 mls/hr IV DAILY [facility] Last Admin: 05/02/17 14:46 Dose: 100 mls/hr Losartan Potassium (Cozaar) 100 mg PO DAILY [facility] Last Admin: 05/02/17 14:48 Dose: 100 mg Risperidone (Risperdal Tab) 0.5 mg PO HS [facility] Last Admin: 04/29/17 22:02 Dose: 0.5 mg Sevelamer Carbonate (Renvela) 800 mg PO TIDCC [facility] Last Admin: 05/03/17 08:45 Dose: 800 mg - Labs Labs: 05/03/17 07:41 05/03/17 07:41 PT 12.4 SECONDS (9.7-12.2) H 04/27/17 07:46 INR 1.1 04/27/17 07:46 APTT 32 SECONDS (21-34) 04/27/17 07:46 - Constitutional Appears: Non-toxic - Head Exam Head Exam: NORMAL INSPECTION - Eye Exam Eye Exam: Normal appearance Pupil Exam: NORMAL ACCOMODATION - ENT Exam ENT Exam: Mucous Membranes Moist - Neck Exam Neck Exam: Full ROM - Respiratory Exam Respiratory Exam: Clear to Ausculation Bilateral - Cardiovascular Exam Cardiovascular Exam: REGULAR RHYTHM - GI/Abdominal Exam GI & Abdominal Exam: Normal Bowel Sounds - Exam Exam: NORMAL INSPECTION - Extremities Exam Additional comments: skin leasios dry - Back Exam Back Exam: NORMAL INSPECTION - Neurological Exam Neurological Exam: Altered - Psychiatric Exam Psychiatric exam: Normal Affect - Skin Skin Exam: Pallor Assessment and Plan - Assessment and Plan (Free Text) Assessment: ams dementia ac herpes zoster thigh esrf stable improved Plan: discharge back to ct
--- NOTE | 2017-05-03 10:02 | CP.PCM.PN ---
<Patrica Landrum - Last Filed: 05/03/17 16:17> Subjective - Date & Time of Evaluation Date of Evaluation: 05/03/17 Time of Evaluation: 10:15 - Subjective Subjective: PGY 2 Nephrology Note- Dr. Hebert's service Pt seen and examined in no apparent acute distress. Clinical partner present bedside. Nurse Practitioner stated that patient's mentation remains stable at this time. Patient unable to comply with review of systems at this time due to mentation. Objective - Vital Signs/Intake and Output Vital Signs (last 24 hours): Temp Pulse Resp BP Pulse Ox 98.3 F 84 20 153/65 H 97 05/02/17 23:38 05/02/17 23:40 05/02/17 23:38 05/02/17 23:38 05/02/17 23:38 Intake and Output: 05/03/17 05/03/17 06:59 18:59 Intake Total 60 Balance 60 - Medications Medications: Current Medications Amlodipine Besylate (Norvasc) 10 mg PO DAILY [facility] Last Admin: 05/02/17 09:28 Dose: 10 mg Cinacalcet (Sensipar) 30 mg PO Q48H [facility] Last Admin: 05/02/17 14:47 Dose: 30 mg Donepezil HCl (Aricept) 10 mg PO HS [facility] Last Admin: 04/29/17 22:02 Dose: 10 mg Heparin Sodium (Porcine) (Heparin) 5,000 units SC Q12 [facility] Last Admin: 05/02/17 21:16 Dose: 5,000 units Hydralazine HCl (Apresoline) 100 mg PO Q8 [facility] Last Admin: 05/03/17 06:30 Dose: 100 mg Acyclovir 400 mg/ Dextrose 100 mls @ 100 mls/hr IV DAILY [facility] Last Admin: 05/02/17 14:46 Dose: 100 mls/hr Losartan Potassium (Cozaar) 100 mg PO DAILY [facility] Last Admin: 05/02/17 14:48 Dose: 100 mg Risperidone (Risperdal Tab) 0.5 mg PO HS [facility] Last Admin: 04/29/17 22:02 Dose: 0.5 mg Sevelamer Carbonate (Renvela) 800 mg PO TIDCC [facility] Last Admin: 05/03/17 08:45 Dose: 800 mg - Labs Labs: 05/03/17 07:41 05/03/17 07:41 PT 12.4 SECONDS (9.7-12.2) H 04/27/17 07:46 INR 1.1 04/27/17 07:46 APTT 32 SECONDS (21-34) 04/27/17 07:46 - Constitutional Appears: No Acute Distress, Confused - Head Exam Head Exam: ATRAUMATIC, NORMOCEPHALIC - Eye Exam Eye Exam: EOMI - ENT Exam ENT Exam: Mucous Membranes Moist - Neck Exam Neck Exam: Full ROM - Respiratory Exam Respiratory Exam: NORMAL BREATHING PATTERN. absent: Wheezes - Cardiovascular Exam Cardiovascular Exam: +S1, +S2, Murmur - GI/Abdominal Exam GI & Abdominal Exam: Soft, Normal Bowel Sounds - Extremities Exam Extremities Exam: Full ROM, Normal Capillary Refill. absent: Joint Swelling, Pedal Edema - Neurological Exam Neurological Exam: Altered, Awake. absent: Oriented x3 - Psychiatric Exam Psychiatric exam: Flat Affect - Skin Skin Exam: Dry, Intact, Warm Additional comments: dried lesions noted on right anteromedial thigh Assessment and Plan - Assessment and Plan (Free Text) Assessment: 77 yo M w/ past medical history of HTN, DM, Dementia, untreated Hepatitis B, L foot drop, and ESRD on HD, admitted with AMS/lethargy ESRD (end stage renal disease) Assessment & Plan: Stable electrolyte status, no overt volume overload but difficulty assessing dry weight due to inability to get standing weights secondary to patient's waxing and waning mentation. Ultrafiltration on hemodialysis Hypertensive CKD, ESRD on dialysis Assessment & Plan: BP uncontrolled. Will need to check vitals from today Hydralazine 100 mg PO Q8, Continue with Norvasc 10mg PO daily and Cozaar 100mg PO daily Challenging with UF on HD as above Recommend to avoid clonidine to prevent hypotension/bradycardia (which led to initial presentation) Anemia in ESRD (end-stage renal disease) Assessment & Plan: Hgb below goal though mildly improved from yesterday- baseline 9-10. On high dose of long acting EPO formulation as outpatient, will continue same Herpes zoster Assessment & Plan: On IV acyclovir, should re-dose after HD ID with considerations for LP. Neuro in agreement. Leg Wound Assessment & Plan: Wound grew out proteus and staph aureus. (Not MRSA) Per ID, patient to begin Ancef IV for coverage. Altered mental state Assessment & Plan: Waxing and waning. Worsened from typical baseline; however stable progression during this admission. Will avoid drastic drops in BP Chronic kidney disease-mineral and bone disorder Assessment & Plan: On Sensipar 30 mg q48h for high PTH, continue; Continue sevelamer 1 tab w/ meals for phos control Diabetes Mellitus Continue Accuchecks Continue to monitor Avoid hypoglycemic or hyperglycemic events Hepatitis B Positive for Hepatitis B as of August 2016 There have been syndromic effects following Hepatitis B vaccination including: Myelitis and MS related events. It is unclear how patient obtained Hepatitis B however will need to investigate from records due to patient's current mental status. Unconfirmed presentations of peripheral neuropathy and Guillain-[place] syndrome are speculated in patients with chronic HBV. These presentations would need to be further investigated. Discussed with attending Dr. Hebert <Josse Hebert - Last Filed: 05/04/17 07:28> Objective - Vital Signs/Intake and Output Vital Signs (last 24 hours): Temp Pulse Resp BP Pulse Ox 98.3 F 82 20 145/68 98 05/03/17 16:00 05/03/17 16:00 05/03/17 16:00 05/03/17 16:00 05/03/17 16:00 - Labs Labs: 05/03/17 07:41 05/03/17 07:41 PT 12.4 SECONDS (9.7-12.2) H 04/27/17 07:46 INR 1.1 04/27/17 07:46 APTT 32 SECONDS (21-34) 04/27/17 07:46 Assessment and Plan (1) ESRD (end stage renal disease) Status: Acute (2) Hypertensive CKD, ESRD on dialysis Status: Acute (3) Anemia in ESRD (end-stage renal disease) Status: Acute (4) Herpes zoster Status: Acute (5) Altered mental state Status: Acute (6) Chronic kidney disease-mineral and bone disorder Status: Acute (7) Hypoglycemia Status: Acute Attending/Attestation - Attestation I have personally seen and examined this patient.: Yes I have fully participated in the care of the patient.: Yes I have reviewed all pertinent clinical information, including history, physical exam and plan: Yes Notes (Text): Patient seen and examined; I agree with the resident's note as above with the following edits: 77 yo M w/ htn, dm, dementia, hep B (untreated), and ESRD on HD, admitted with AMS/lethargy; Mental status somewhat improved today with patient slowly responding to verbal stimuli and able to answer yes/no questions; tolerating diet; Etiology of AMS still unclear; psychotropic meds and clonidine held; Has been on acyclovir for zoster infection involving L thigh; being sent back to [facility] on PO med (should be valtrex); Thigh wound also growing MSSA and proteus, being given PO cipro and IV ancef on d/c; can dose ancef with HD (2g); Hypertensive CKD/ESRD; BP better controlled on increased hydralazine dose (100 mg q8h), continue along with amlodipine 10 and losartan 100; Anemia stable but well below goal; due for EPO dosing at next HD (mircera 200 mcg q2w); On sensipar 30 mg q48h for high PTH, continue; continue sevelamer 1 tab w/ meals for phos control; Thank you for the opportunity to see this patient, we will continue to manage his ESRD care as outpatient;
[2017-05-03 13:16] LABS: VARICELLA-ZOSTER AB (IGM) 1.17 (<=0.90)
[2017-05-03] MEDS: ACYCLOVIR IV SCH (14:36)
[2017-05-03] MEDS: WATER IV SCH (14:36)
[2017-05-03] MEDS: DEXTROSE 5% IV SCH (14:36)
--- NOTE | 2017-05-03 15:07 | CP.PCM.PN ---
Subjective - Date & Time of Evaluation Date of Evaluation: 05/03/17 Time of Evaluation: 11:00 - Subjective Subjective: awake, talks, improving slowly. Eating improving. Objective - Vital Signs/Intake and Output Vital Signs (last 24 hours): Temp Pulse Resp BP Pulse Ox 98.3 F 84 20 153/65 H 97 05/02/17 23:38 05/02/17 23:40 05/02/17 23:38 05/02/17 23:38 05/02/17 23:38 Intake and Output: 05/03/17 05/03/17 06:59 18:59 Intake Total 60 Balance 60 - Medications Medications: Current Medications Amlodipine Besylate (Norvasc) 10 mg PO DAILY [facility] Last Admin: 05/03/17 14:38 Dose: 10 mg Cinacalcet (Sensipar) 30 mg PO Q48H [facility] Last Admin: 05/02/17 14:47 Dose: 30 mg Donepezil HCl (Aricept) 10 mg PO HS [facility] Last Admin: 04/29/17 22:02 Dose: 10 mg Heparin Sodium (Porcine) (Heparin) 5,000 units SC Q12 [facility] Last Admin: 05/03/17 14:37 Dose: 5,000 units Hydralazine HCl (Apresoline) 100 mg PO Q8 [facility] Last Admin: 05/03/17 14:38 Dose: 100 mg Acyclovir 400 mg/ Dextrose 100 mls @ 100 mls/hr IV DAILY [facility] Last Admin: 05/03/17 14:36 Dose: 100 mls/hr Losartan Potassium (Cozaar) 100 mg PO DAILY [facility] Last Admin: 05/03/17 14:38 Dose: 100 mg Risperidone (Risperdal Tab) 0.5 mg PO HS [facility] Last Admin: 04/29/17 22:02 Dose: 0.5 mg Sevelamer Carbonate (Renvela) 800 mg PO TIDCC [facility] Last Admin: 05/03/17 08:45 Dose: 800 mg - Labs Labs: 05/03/17 07:41 05/03/17 07:41 PT 12.4 SECONDS (9.7-12.2) H 04/27/17 07:46 INR 1.1 04/27/17 07:46 APTT 32 SECONDS (21-34) 04/27/17 07:46 Assessment and Plan - Assessment and Plan (Free Text) Assessment: Patient is seen and examined. Lethargic but responsive to calls, able to eat the breakfast 30%, improving slowly. On hold with all psyche meds. Has drying lesions on left thigh. D/W DR Salguero and DR Barriga. Plan to discharge to rehab on oral and iv antibiotics for 7 days. To follow up by neuro and psyche as needed.
[2017-05-03 17:39] VITALS: BP 145/68; PULSE 82; O2SAT 98
--- NOTE | 2017-05-03 22:45 | CP.PCM.PN ---
Subjective - Date & Time of Evaluation Date of Evaluation: 05/03/17 Time of Evaluation: 16:20 - Subjective Subjective: He became responsive, eating and swallowing, trying to talk. He is discharged to Rehab facility. Objective - Vital Signs/Intake and Output Vital Signs (last 24 hours): Temp Pulse Resp BP Pulse Ox 98.3 F 82 20 145/68 98 05/03/17 16:00 05/03/17 16:00 05/03/17 16:00 05/03/17 16:00 05/03/17 16:00 - Labs Labs: 05/03/17 07:41 05/03/17 07:41 PT 12.4 SECONDS (9.7-12.2) H 04/27/17 07:46 INR 1.1 04/27/17 07:46 APTT 32 SECONDS (21-34) 04/27/17 07:46 Assessment and Plan (1) CVA (cerebral vascular accident) Status: Acute (2) Altered mental state Status: Acute (3) Anemia Status: Acute (4) Anemia in ESRD (end-stage renal disease) Status: Acute (5) ESRD (end stage renal disease) Status: Acute (6) Herpes zoster Status: Acute (7) Hypertensive CKD, ESRD on dialysis Status: Acute (8) Blurred vision Status: Acute (9) Chronic kidney disease-mineral and bone disorder Status: Acute (10) Seizures Status: Acute
--- NOTE | 2017-05-09 06:54 | DS ---
HISTORY AND HOSPITAL COURSE: He is a 77-year-old who came in to the Emergency Room on 04/27/2017 because he was found to be less responsive and altered mental status as per family. He has end-stage renal failure and he has been having history of anemia, arthritis, dementia, diabetes, hypertension, peripheral edema, and chronic kidney disease. Vitals when he came in, his blood pressure was 100/43, respiration was 12, pulse 46, temperature 97 and he was not communicating. His labs showed hemoglobin 8.3. His BUN was 59, creatinine 5.9. His CT scan was unremarkable, but his MRI which was done subsequently showed atrophy of the brain. He was seen by the registered nurses and he was seen also by Dr. Barriga, Infectious Diseases to rule out sepsis as a reason for that. He was found in his thigh some vesicular lesions, looks like may be herpes zoster, and Dr. Barriga put him on isolation. He was treated for his blood pressure with Norvasc, Sensipar, Catapres, heparin subcutaneous, hydralazine, acyclovir, losartan, and bicarbonate. Started him on acyclovir for the herpes. Patient gradually improved, he was able to eat, he started talking as I tried to talk. He was more awake and comfortable, and his vital signs were stable. His BUN came down to 30, his creatinine 4.3. He was very stable, and he was discharged again to the [facility] on his same medications as we prescribed, to continue followup by his MD. FINAL DIAGNOSES: Altered mental status, brain atrophy, dementia, acute herpes zoster, anemia of chronic disease, and chronic kidney failure. Amanda Thayer MD
== END 2017-05-03 17:52 | DRG 56 ==
LOC: C.ER 07:23 → C.6T 10:39 → C.9E 12:31 → C.5S 12:36 → OBSVTOIN 04-29 09:00
PROVIDERS: ADMIT Internal Medicine; ATTEND Internal Medicine
PROC: 5A1D70Z Performance of Urinary Filtration, Intermittent, Less than 6 Hours Per Day (ICD-10-PCS; principal; 2017-04-30)
DX: G31.9 Degenerative disease of nervous system, unspecified (principal); G93.41 Metabolic encephalopathy; E11.621 Type 2 diabetes mellitus with foot ulcer; F01.50 Vascular dementia, unspecified severity, without behavioral disturbance, psychotic disturbance, mood disturbance, and anxiety; G21.19 Other drug induced secondary parkinsonism; I95.9 Hypotension, unspecified; E11.22 Type 2 diabetes mellitus with diabetic chronic kidney disease; E11.649 Type 2 diabetes mellitus with hypoglycemia without coma; B19.10 Unspecified viral hepatitis B without hepatic coma; I95.2 Hypotension due to drugs; L97.429 Non-pressure chronic ulcer of left heel and midfoot with unspecified severity; B02.9 Zoster without complications; D63.1 Anemia in chronic kidney disease; I12.9 Hypertensive chronic kidney disease with stage 1 through stage 4 chronic kidney disease, or unspecified chronic kidney disease; N18.9 Chronic kidney disease, unspecified; T46.5X5A Adverse effect of other antihypertensive drugs, initial encounter; M89.9 Disorder of bone, unspecified; M21.372 Foot drop, left foot; F39 Unspecified mood [affective] disorder; Z74.01 Bed confinement status; Z86.73 Personal history of transient ischemic attack (TIA), and cerebral infarction without residual deficits; T43.595A Adverse effect of other antipsychotics and neuroleptics, initial encounter; R56.9 Unspecified convulsions; S81.809A Unspecified open wound, unspecified lower leg, initial encounter; B95.61 Methicillin susceptible Staphylococcus aureus infection as the cause of diseases classified elsewhere